=== PATIENT | female | born 1975 | race Caucasian/White ===

== ENCOUNTER 2017-01-28 15:09 | Emergency (ER) | payer BC ==
[2017-01-28] MEDS ORDERED: KETOROLAC TROMETHAMINE 60 MG/2 ML SDV IM ONE (17:19)
[2017-01-28] MEDS ORDERED: DIPHENHYDRAMINE HCL 50 MG/ML VIAL IM ONE (17:19)
[2017-01-28] MEDS ORDERED: METOCLOPRAMIDE HCL INJ/PF 10 MG/2 ML SDV IM ONE (17:19)
--- NOTE | 2017-01-28 17:20 | ER Document Report ---
ED Headache - General Mode of Arrival: Ambulatory Information source: Patient TRAVEL OUTSIDE OF THE [place] IN LAST 30 DAYS: No - HPI Patient complains to provider of: "Migraine" Onset: Other - see HPI note Exacerbated by: Light Similar symptoms previously: Yes Recently seen / treated by doctor: No - General Chief Complaint: Headache Stated Complaint: HEADACHE Notes: Patient is a 41-year-old female presented emergency department for migraine. Patient has a chronic history of migraines and sees Dr. Hughes, neurologist. Patient states that Dr. Hughes has given her all the treatments to treat her migraines with no relief. Patient is now receiving narcotic pain medication from this provider. However, the patient states that these medications do not help her migraines. Patient states that she's also had 2 treatments of Botox and is supposed to be receiving a third. Patient states this particular migraine started one month ago. Patient has photophobia with this migraine. Patient states that she is able to call a ride if we medicate her. (ZOIE BACA) - Related Data Allergies/Adverse Reactions: clarithromycin [From Biaxin] Allergy (Verified 01/28/17 15:33) eletriptan HBr [From Relpax] Allergy (Verified 01/28/17 15:33) topiramate [From Trokendi XR] Allergy (Verified 01/28/17 15:33) Past Medical History - General Information source: Patient - Social History Smoking Status: Never Smoker Cigarette use (# per day): No Chew tobacco use (# tins/day): No Frequency of alcohol use: None Drug Abuse: None Family History: None Patient has suicidal ideation: No Patient has homicidal ideation: No Neurological Medical History: Reports: Hx Migraine Musculoskeltal Medical History: Denies Hx Arthritis Past Surgical History: Reports: Hx Section, Hx Tonsillectomy - tubes in ears - Immunizations Hx Diphtheria, Pertussis, Tetanus Vaccination: No Review of Systems - Review of Systems Constitutional: No symptoms reported EENT: No symptoms reported Cardiovascular: No symptoms reported Respiratory: No symptoms reported Gastrointestinal: No symptoms reported Genitourinary: No symptoms reported Female Genitourinary: No symptoms reported Musculoskeletal: No symptoms reported Skin: No symptoms reported Hematologic/Lymphatic: No symptoms reported Neurological/Psychological: See HPI, Headaches -: Yes All other systems reviewed and negative Physical Exam - Vital signs Interpretation: Normal - General General appearance: Appears well, Alert In distress: Mild - HEENT Head: Normocephalic, Atraumatic Eyes: Normal Pupils: PERRL Mucous membranes: Moist - Respiratory Respiratory status: No respiratory distress - Cardiovascular Rhythm: Regular - Abdominal Inspection: Normal - Back Back: Normal, Nontender - Extremities General upper extremity: Normal inspection, Normal ROM, Normal strength General lower extremity: Normal inspection, Normal ROM, Normal strength - Neurological Neuro grossly intact: Yes Cognition: Normal Orientation: AAOx4 [place] Coma Scale Eye Opening: Spontaneous Vasyl Coma Scale Verbal: Oriented [place] Coma Scale Motor: Obeys Commands Vasyl Coma Scale Total: 15 Speech: Normal Sensory: Normal - Psychological Associated symptoms: Normal affect, Normal mood - Skin Skin Temperature: Warm Skin Moisture: Dry Course - Re-evaluation Re-evalutation: 01/28/17 18:15 Patient presented per with the gradual onset of headache photophobia started a month ago. She has chronic long-standing headaches for which she sees a neurologist and has been refractory to every medication except the potassium on pain medication causes noticed do according to her. Patient also received 2 doses of Botox without any relief says that this is exactly same character quality frequency duration is previous headaches. No blurred vision double vision slurred speech strokelike symptoms weakness dizziness vertigo syncope or near-syncope no numbness tingling weakness loss of bowel or bladder function. On examination she is well-appearing nontoxic no acute distress afebrile no nuchal rigidity or concerns for meningitis. Normal neurological exam GCS of 15 ambulatory without any difficulty. Given Toradol Reglan and Benadryl with significant improvement feels like shingles and sleep. At this time no emergent need for additional workup CT of the head or concerns for stroke or subarachnoid hemorrhage. We'll discharge her follow up with her neurologist and discussed reasons for ED return sooner (DELMI OSUNA) - Vital Signs Vital signs: Temp Pulse Resp BP Pulse Ox 97.2 F 104 H 18 122/69 85 L 01/28/17 18:18 01/28/17 18:18 01/28/17 18:18 01/28/17 18:18 01/28/17 18:18 Discharge - Discharge Clinical Impression: acute on chronic cephalgia Condition: Stable Disposition: HOME, SELF-CARE Additional Instructions: Headache The physician does not feel that the headache you are experiencing has a serious underlying cause. Most headaches are due to emotional stress, with resultant muscle tension (tension headache). Occasionally, headaches are secondary to changes in the blood vessels of the scalp (vascular headache and migraine headache). Sometimes, a headache is the first symptom of another developing illness, such as a viral infection. You have no evidence of stroke, bleeding, meningitis, or other serious cause of your headache. The treatment of headaches varies with the severity and cause of the pain. Not all headaches need pain shots. In fact, there is evidence that using narcotics for headaches may make them worse in the long run. The physician will determine the therapy that's in your best interest. If you develop a fever, if the headache is different from any you've previously experienced, or if the headache progressively worsens, then call your physician at once or go to the emergency room. Follow-up with your neurologist in 2-3 days return for increasing worsening or new symptoms Scribe Attestation: 01/28/17 18:14 I personally performed the services described in the documentation reviewed the documentation recorded by the scribe in my presence and it accurately incompletely records my words and actions (DELMI OSUNA) Scribe Documentation - Scribe Written by Dima:: Zoie Baca 01/28/17 18:30 acting as scribe for :: Valdemar
[2017-01-28 18:20] VITALS: BP 122/69
== END 2017-01-28 18:18 | disposition home or self-care (01) ==
LOC: ER 15:09
DX: G43.909 Migraine, unspecified, not intractable, without status migrainosus (principal); H53.149 Visual discomfort, unspecified; Z79.891 Long term (current) use of opiate analgesic; Z98.890 Other specified postprocedural states; Z88.1 Allergy status to other antibiotic agents; Z88.6 Allergy status to analgesic agent
CPT/HCPCS: 99283; 96372; J1200; J1885; J2765

== ENCOUNTER → 2017-02-23 | Outpatient (CLI) | payer BC ==
--- NOTE | 2017-02-23 14:42 | RADIOLOGY REPORT (SQ) ---
EXAM DESCRIPTION: CT ABD/PELVIS WITH IV ORAL COMPLETED DATE/TIME: 02/23/2017 1:56 pm REASON FOR STUDY: LUQ ABD PAIN (R10.12), EPIGASTRIC PAIN (R10.13), ABD TENDERNESS-EPIGASTRIC R10.12 LEFT UPPER QUADRANT PAIN R10.13 EPIGASTRIC PAIN R10.816 EPIGASTRIC ABDOMINAL TENDERNESS COMPARISON: 01/09/2016. TECHNIQUE: CT scan of the abdomen and pelvis performed with intravenous and oral contrast using alexys abigail scanning technique with dynamic intravenous contrast injection. Images reviewed with lung, soft t issue, and bone windows. Reconstructed coronal and sagittal MPR images reviewed. Delayed images for e valuation of the urinary system also acquired. All images stored on PACS. All CT scanners at this facility use dose modulation, iterative reconstruction, and/or weight based d osing when appropriate to reduce radiation dose to as low as reasonably achievable (ALARA). [facility]: Dose Right [facility]: CareDose [facility]: Dose Right [facility]: Teradose 4D [facility]: Hippflow CONTRAST TYPE AND DOSE: 75 mL Isovue 370- low osmolar. RENAL FUNCTION: None required. The patient is less than 50 years old. RADIATION DOSE: 9.41mGy. LIMITATIONS: None. FINDINGS: LOWER CHEST: No significant findings. No nodules or infiltrates. LIVER: Normal size. No masses or dilated ducts. SPLEEN: Normal size. No focal lesions. PANCREAS: No masses. No significant calcifications. No adjacent inflammation or peripancreatic fluid collections. Pancreatic duct not dilated. GALLBLADDER: No identified stones by CT criteria. No inflammatory changes to suggest cholecystitis. ADRENAL GLANDS: No significant masses or asymmetry. RIGHT KIDNEY AND URETER: No solid masses. No significant calcification. No hydronephrosis or hydroure ter. LEFT KIDNEY AND URETER: No solid masses. No significant calcification. No hydronephrosis or hydrouret er. AORTA AND VESSELS: No aneurysm. No dissection. Renal arteries, SMA, celiac without stenosis. RETROPERITONEUM: No retroperitoneal adenopathy, hemorrhage or masses. BOWEL AND PERITONEAL CAVITY: No obstruction. No visualized masses. No free fluid. No inflammatory ch anges or thickening of bowel wall. APPENDIX: Not visualized. PELVIS: No significant masses. Normal bladder. No free fluid. ABDOMINAL WALL: No masses. No hernias. BONES: No significant or acute findings. OTHER: No other significant finding. IMPRESSION: NO SIGNIFICANT OR ACUTE FINDINGS IN THE ABDOMEN OR PELVIS. TECHNICAL DOCUMENTATION: JOB ID: [id number] Quality ID # [id number]: Final reports with documentation of one or more dose reduction techniques (e.g., Au tomated exposure control, adjustment of the mA and/or kV according to patient size, use of iterative reconstruction technique) 2010 [employer]- All Rights Reserved
== END ==
LOC: RAD 12:41
PROVIDERS: ATTEND Internal Medicine Gastroenterology
DX: R10.12 Left upper quadrant pain (principal); R10.13 Epigastric pain
CPT/HCPCS: 74177

== ENCOUNTER 2017-02-28 08:09 | Emergency (ER) | payer BC ==
[2017-02-28 09:23] LABS: ABSOLUTE EOSINOPHILS # (AUTO) 0.1 10^3/uL (0.0-0.6); ABSOLUTE LYMPHOCYTES (AUTO) 1.9 10^3/uL (0.5-4.7); ABSOLUTE MONOCYTES (AUTO) 0.7 10^3/uL (0.1-1.4); ABSOLUTE NEUT (AUTO) 3.8 10^3/uL (1.7-8.2); BASOPHILS % (AUTO) 0.6 % (0-2); EOSINOPHILS % (AUTO) 1.5 % (0-6); HEMATOCRIT 32.8 % (36.0-47.0); HEMOGLOBIN 10.5 g/dL (12.0-15.5); HGB HCT DIFFERENCE -1.3; LYMPHOCYTES % (AUTO) 29.6 % (13-45); MEAN CORPUSCULAR HEMOGLOBIN 23.9 pg (27.0-33.4); MEAN CORPUSCULAR HGB CONC 31.9 g/dL (32.0-36.0); MEAN CORPUSCULAR VOLUME 75 fl (80-97); MONOCYTES % (AUTO) 10.1 % (3-13); RED BLOOD COUNT 4.39 10^6/uL (3.72-5.28); SEGMENTED NEUTROPHILS % (AUTO) 58.2 % (42-78); WHITE BLOOD COUNT 6.5 10^3/uL (4.0-10.5)
[2017-02-28 09:31] VITALS: BP 121/79
[2017-02-28 09:32] LABS: APPEARANCE,URINE CLEAR; BILIRUBIN,URINE NEGATIVE (NEGATIVE); GLUCOSE, URINE NEGATIVE (NEGATIVE); KETONES,URINE NEGATIVE (NEGATIVE); LEUKOCYTE ESTERASE,URINE NEGATIVE (NEGATIVE); NITRITE,URINE NEGATIVE (NEGATIVE); PROTEIN,URINE NEGATIVE (NEGATIVE); URINE SPECIFIC GRAVITY 1.003; UROBILINOGEN,URINE NEGATIVE mg/dL (<2.0)
[2017-02-28 09:34] LABS: ANION GAP 11 (5-19); BLOOD UREA NITROGEN 10 mg/dL (7-20); CALCIUM 9.7 mg/dL (8.4-10.2); CARBON DIOXIDE 27 mmol/L (22-30); CHLORIDE 103 mmol/L (98-107); CREATININE RESULT 0.69 mg/dL (0.52-1.25); GLUCOSE 89 mg/dL (75-110); LIPASE 97.1 U/L (23-300); SODIUM 140.5 mmol/L (137-145)
[2017-02-28] MEDS ORDERED: ONDANSETRON 4 MG TAB.RAPDIS PO ONE (09:57)
[2017-02-28] MEDS ORDERED: MECLIZINE HCL 25 MG TABLET PO ONE (09:57)
[2017-02-28] MEDS ORDERED: MAG HYDROX/AL HYDROX/SIMETH SUSP 30 ML UDCUP PO ONE (10:25)
[2017-02-28] MEDS ORDERED: LIDOCAINE 2% VISCOUS SOLN 20 ML UDCUP PO ONE (10:25)
--- NOTE | 2017-02-28 10:29 | ER Document Report ---
HPI - HPI Patient complains to provider of: nausea and dizziness Pain Level: 2 Context: Patient is a 41 year old female who presents to the ED complaining of dizziness for the past day and nausea with abdominal pain. She states that her dizziness is normal for her but doesnt normally last as long as one day. She states she gets a head cleaning when she stands up and walks around. She states that she notices this when she isnt drinking enough water. She says she has been following with GI this year since she has had a lack of appetite since she was treated for h pylori in october. she denies vomiting, lower abdominal/pelvic pain, fevers, chills, headaches. tolerating PO PMH: migraines, GERD - CARDIOVASCULAR Cardiovascular: DENIES: Chest pain - REPRODUCTIVE Reproductive: DENIES: : - DERM Skin Color: Normal Past Medical History - Social History Smoking Status: Unknown if Ever Smoked Family History: None - Past Medical History Cardiac Medical History: Denies: Hx Coronary Artery Disease, Hx Heart Attack, Hx Hypertension Pulmonary Medical History: Denies: Hx Asthma, Hx Bronchitis, Hx COPD, Hx Pneumonia Neurological Medical History: Reports: Hx Migraine. Denies: Hx Cerebrovascular Accident, Hx Seizures Renal/ Medical History: Denies: Hx Peritoneal Dialysis Musculoskeltal Medical History: Denies Hx Arthritis Past Surgical History: Reports: Hx Section, Hx Tonsillectomy - tubes in ears. Denies: Hx Hysterectomy - Immunizations Hx Diphtheria, Pertussis, Tetanus Vaccination: No Vertical Provider Document - CONSTITUTIONAL Notes: PHYSICAL EXAM GENERAL: Alert, interacts well. HEAD: Normocephalic, atraumatic. EYES: Pupils equal, round, and reactive to light. Extraocular movements intact. ENT: Oral mucosa moist, tongue midline. Negative Hallpike's maneuver bilaterally NECK: Full range of motion. Supple. Trachea midline. LUNGS: Clear to auscultation bilaterally, no wheezes, rales, or rhonchi. No respiratory distress. HEART: Regular rate and rhythm. No murmurs, gallops, or rubs. ABDOMEN: Soft, nondistended, nontender. No guarding, rebound, or rigidity.. Bowel sounds present in all 4 quadrants. EXTREMITIES: Moves all 4 extremities spontaneously. No edema, radial and dorsalis pedis pulses 2/4 bilaterally. No cyanosis. NEUROLOGICAL: Alert and oriented x4. Normal speech. PSYCH: Normal affect, normal mood. SKIN: Warm, dry, normal turgor. No rashes or lesions noted. - INFECTION CONTROL TRAVEL OUTSIDE OF THE [place] IN LAST 30 DAYS: No - RESPIRATORY O2 Sat by Pulse Oximetry: 100 Course - Re-evaluation Re-evalutation: 02/28/17 18:13 41-year-old female but anxious female, no acute distress and afebrile. Labs reveal chronic anemia consistent with iron deficiency anemia, leukocytosis, white count. Chemistry panel does not show any electrolyte abnormalities, abnormalities in liver or renal function. Lipase normal. Tolerated p.o. cocktail will discharge home with instruction to follow-up with gastroenterology - Vital Signs Vital signs: Temp Pulse Resp BP Pulse Ox 98.2 F 71 14 121/79 100 02/28/17 08:12 02/28/17 09:41 02/28/17 09:41 02/28/17 09:41 02/28/17 09:41 - Laboratory Result Diagrams: 02/28/17 09:15 02/28/17 09:15 Laboratory results interpreted by me: 02/28/17 09:15 Hgb 10.5 L Hct 32.8 L MCV 75 L MCH 23.9 L MCHC 31.9 L RDW 18.0 H Discharge - Discharge Clinical Impression: Nausea Condition: Good Disposition: HOME, SELF-CARE Additional Instructions: Esophagitis Your evaluation has resulted in a diagnosis of esophagitis. This is an inflammation of the lower esophagus due to stomach acid. It causes symptoms such as chest pain, heartburn, or food "sticking." This is common in persons with a hiatal hernia. Certain foods, alcohol, and aspirin contribute to esophagitis. Treatment depends on the severity. Usually, antacids or acid-suppressing medicines are used. The physician will often prescribe membrane-protective drugs (such as Carafate). Some patients benefit from medication that tightens the valve at the top of the stomach (such as Reglan). Avoid alcohol, aspirin, caffeine, tobacco, and foods that cause heartburn ( such as chocolate). Elevate the head of your bed about four inches. Call the doctor if you develop severe chest pain, inability to swallow fluids, fever, or worsening symptoms. Prescriptions: Omeprazole Magnesium [Prilosec Otc] 20 mg PO DAILY #14 tablet. Ondansetron HCl [Zofran 4 mg Tablet] 1 - 2 tab PO Q4H PRN #20 tablet PRN Reason: Sucralfate [Carafate 1 gm Tablet] 1 gm PO ACHS #120 tablet Forms: Return to Work Referrals: MAGDALENA WATKINS, [facility] [Primary Care Provider] - Follow up as needed TED ORTEZ MD [ACTIVE STAFF] - Follow up as needed
== END 2017-02-28 10:40 | disposition home or self-care (01) ==
LOC: ER 08:09
DX: R11.0 Nausea (principal); R42 Dizziness and giddiness; R10.9 Unspecified abdominal pain
CPT/HCPCS: 99284; 36415; 83690; 85025; 81025; 80048; 81001; S0119; J3490

== ENCOUNTER 2017-04-28 12:27 | Emergency (ER) | payer BC ==
[2017-04-28 12:36] VITALS: BP 116/76
--- NOTE | 2017-04-28 12:52 | ER Document Report ---
ED Headache - General Chief Complaint: Headache Stated Complaint: DIZZINESS Time Seen by Provider: 04/28/17 12:48 Notes: Patient states she has a long history of migraines. She has been on multiple different medications. 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 She states today's migraine feels like her usual migraine it is just a severe one. She states she is currently taking hydrocodone but does not like this medication. She states the headache is bilateral and throbbing. It is severe.. It does not radiate. It is made worse by movement or light. It is better with rest and sleep. TRAVEL OUTSIDE OF THE [place] IN LAST 30 DAYS: No - Related Data Allergies/Adverse Reactions: clarithromycin [From Biaxin] Allergy (Verified 04/28/17 12:33) eletriptan HBr [From Relpax] Allergy (Verified 04/28/17 12:33) topiramate [From Trokendi XR] Allergy (Verified 04/28/17 12:33) Past Medical History - General Information source: Patient - Social History Smoking Status: Never Smoker Drug Abuse: None Family History: None - Past Medical History Cardiac Medical History: Denies: Hx Coronary Artery Disease, Hx Heart Attack, Hx Hypertension Pulmonary Medical History: Denies: Hx Asthma, Hx Bronchitis, Hx COPD, Hx Pneumonia Neurological Medical History: Reports: Hx Migraine. Denies: Hx Cerebrovascular Accident, Hx Seizures Renal/ Medical History: Denies: Hx Peritoneal Dialysis Musculoskeltal Medical History: Denies Hx Arthritis Past Surgical History: Reports: Hx Section, Hx Tonsillectomy - tubes in ears. Denies: Hx Hysterectomy - Immunizations Hx Diphtheria, Pertussis, Tetanus Vaccination: No Review of Systems - Review of Systems Constitutional: denies: Chills, Fever EENT: Blurred vision Cardiovascular: denies: Chest pain, Palpitations Respiratory: denies: Cough, Short of breath Gastrointestinal: Nausea Physical Exam - Vital signs Vitals: Temp Pulse Resp BP Pulse Ox 98.3 F 87 14 116/76 100 04/28/17 12:35 04/28/17 12:35 04/28/17 12:35 04/28/17 12:35 04/28/17 12:35 Interpretation: Normal - General General appearance: Appears well, Alert - HEENT Head: Normocephalic, Atraumatic Eyes: Normal Pupils: PERRL - Respiratory Respiratory status: No respiratory distress Chest status: Nontender Breath sounds: Normal Chest palpation: Normal - Cardiovascular Rhythm: Regular Heart sounds: Normal auscultation Murmur: No - Abdominal Inspection: Normal Distension: No distension Bowel sounds: Normal Tenderness: Nontender Organomegaly: No organomegaly - Back Back: Normal, Nontender - Extremities General upper extremity: Normal inspection, Nontender, Normal color, Normal ROM , Normal temperature General lower extremity: Normal inspection, Nontender, Normal color, Normal ROM , Normal temperature, Normal weight bearing. No: Parvin's sign - Neurological Neuro grossly intact: Yes Cognition: Normal Orientation: AAOx4 [place] Coma Scale Eye Opening: Spontaneous Vasyl Coma Scale Verbal: Oriented Vasly Coma Scale Motor: Obeys Commands Vasyl Coma Scale Total: 15 Speech: Normal Motor strength normal: LUE, RUE, LLE, RLE Sensory: Normal - Psychological Associated symptoms: Normal affect, Normal mood - Skin Skin Temperature: Warm Skin Moisture: Dry Skin Color: Normal Course - Vital Signs Vital signs: Temp Pulse Resp BP Pulse Ox 98.3 F 87 14 116/76 100 04/28/17 12:35 04/28/17 12:35 04/28/17 12:35 04/28/17 12:35 04/28/17 12:35 Discharge - Discharge Clinical Impression: Migraine Condition: Stable Disposition: HOME, SELF-CARE Instructions: Headache ([facility]) Additional Instructions: Please follow-up with your primary doctor as necessary. Prescriptions: Butalb/Acetaminophen/Caffeine [Fioricet (50-325-40 mg) Tablet] 1 - 2 tab PO Q4H #20 tab Diphenhydramine HCl [Benadryl 25 mg Capsule] 1 cap PO Q4 PRN #1 pkg PRN Reason:
== END 2017-04-28 12:55 | disposition home or self-care (01) ==
LOC: ER 12:27
DX: G43.909 Migraine, unspecified, not intractable, without status migrainosus (principal); R42 Dizziness and giddiness; Z79.899 Other long term (current) drug therapy
CPT/HCPCS: 99283

== ENCOUNTER → 2017-07-11 | Outpatient (CLI) | payer BC ==
--- NOTE | 2017-07-11 10:33 | WOMENS IMAGING REPORT ---
EXAM DESCRIPTION: U/S ABDOMEN LIMITED COMPLETED DATE/TIME: 07/11/2017 9:07 am REASON FOR STUDY: EPIGASTRIC PAIN; R10.13 R10.13 EPIGASTRIC PAIN R11.0 NAUSEA R10.11 RIGHT UPPER QUADRANT PAIN COMPARISON: None. TECHNIQUE: Dynamic and static grayscale images acquired of the abdomen and recorded on PACS. Additio nal selected color Doppler and spectral images recorded. LIMITATIONS: None. FINDINGS: PANCREAS: No masses. Visualized pancreatic duct normal caliber. LIVER: No masses. Echotexture normal. LIVER VASCULATURE: Normal directional flow of the main portal vein and hepatic veins. GALLBLADDER: No stones. Normal wall thickness. No pericholecystic fluid. ULTRASOUND-DETECTED PANDA'S SIGN: Negative. INTRAHEPATIC DUCTS AND COMMON DUCT: CBD and intrahepatic ducts normal caliber. No filling defects. INFERIOR VENA CAVA: Normal flow. AORTA: No aneurysm. RIGHT KIDNEY: Normal size, 10.6 cm in length. Normal echogenicity. No solid or suspicious masses. No hydronephrosis. No calcifications. PERITONEAL AND RIGHT PLEURAL SPACE: No ascites or effusions. OTHER: No other significant findings. IMPRESSION: NORMAL RIGHT UPPER QUADRANT ULTRASOUND. TECHNICAL DOCUMENTATION: JOB ID: [id number] [employer]- All Rights Reserved
== END ==
LOC: WI 08:36
PROVIDERS: ATTEND Internal Medicine Gastroenterology
DX: R10.13 Epigastric pain (principal); R11.0 Nausea; R10.11 Right upper quadrant pain
CPT/HCPCS: 76705

== ENCOUNTER → 2018-07-03 | Outpatient (CLI) | payer BC ==
--- NOTE | 2018-07-04 09:53 | RADIOLOGY REPORT (SQ) ---
EXAM DESCRIPTION: MRI HEAD COMBO COMPLETED DATE/TIME: 07/03/2018 6:40 pm REASON FOR STUDY: MIGRAINE WITHOUT AURA, INTRACTABLE, WITH STATUS MIGRAINOSUS G43.011 MIGRAINE WITH OUT AURA, INTRACTABLE, WITH STATUS MIGR COMPARISON: CT brain 09/27/2015 MRI brain 03/26/2016 TECHNIQUE: Multiplanar imaging includes noncontrasted T1, T2, FLAIR, diffusion with ADC map and post gadolinium contrast T1 sequences. Images stored on PACS. CONTRAST TYPE AND DOSE: 10 mL Prohance. RENAL FUNCTION: GFR > 60. LIMITATIONS: None. FINDINGS: ANATOMY: Low-lying cerebellar tonsils with for protrude about 12 mm below the foramen magn um into the upper cervical canal. Partial effacement of the CSF around the medulla and cerebellar to nsils without upper cervical cord syrinx down to the C3 level. CSF SPACES: Normal in size and contour. No hemorrhage. CEREBRUM: Sulci and gyri normal in size and contour. Normal white matter signal on FLAIR imaging. No evidence of hemorrhage, mass, or extraaxial fluid collection. No abnormal enhancement post contrast. POSTERIOR FOSSA: No signal alteration. No hemorrhage. No edema, masses, or mass effect. Internal marcie tory canals, cerebellopontine angles, mastoids normal. No enhancing lesions. No abnormal enhancement post contrast. DIFFUSION IMAGING: Negative for acute or subacute infarction. ORBITS: No masses. Globes normal. PARANASAL SINUSES: Bilateral maxillary sinus mucus or serous retention cysts. OTHER: No other significant finding. 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 No hydrocephalus. Otherwise unremarkable MRI brain without and with contrast EVIDENCE OF ACUTE STROKE: NO. TECHNICAL DOCUMENTATION: JOB ID: [id number]- All Rights Reserved Reading location - IP/workstation name: [email or web address]
== END ==
LOC: RAD 16:25
PROVIDERS: ATTEND Psychiatry & Neurology Neurology
DX: G43.011 Migraine without aura, intractable, with status migrainosus (principal); G93.5 Compression of brain
CPT/HCPCS: 70553

== ENCOUNTER 2019-07-04 10:27 | Emergency (ER) | payer BC ==
--- NOTE | 2019-07-04 10:45 | ER Document Report ---
ED Medical Screen (RME) - General Chief Complaint: Headache Stated Complaint: MIGRAINE Time Seen by Provider: 07/04/19 10:44 Primary Care Provider: RAH CUNNINGHAM MD [Primary Care Provider] - Follow up as needed Mode of Arrival: Ambulatory Information source: Patient Notes: 43-year-old female presented to ED for complaint of chronic migraines x30 years sciatic nerve pain he has a history of Chiari I malformation's cervicogenic neck pain chronic right back pain and chronic migraines. She is alert oriented respirations regular and unlabored speaking in full sentences walks with a even steady gait. I have greeted and performed a rapid initial assessment of this patient. A comprehensive ED assessment and evaluation of the patient, analysis of test results and completion of medical decision making process will be conducted by an additional ED providers. TRAVEL OUTSIDE OF THE [place] IN LAST 30 DAYS: No - Related Data Allergies/Adverse Reactions: clarithromycin [From Biaxin] Allergy (Verified 07/04/19 10:35) eletriptan HBr [From Relpax] Allergy (Verified 07/04/19 10:35) topiramate [From Trokendi XR] Allergy (Verified 07/04/19 10:35) Past Medical History - Social History Chew tobacco use (# tins/day): No Drug Abuse: None - Past Medical History Cardiac Medical History: Denies: Hx Coronary Artery Disease, Hx Heart Attack, Hx Hypertension Pulmonary Medical History: Denies: Hx Asthma, Hx Bronchitis, Hx COPD, Hx Pneumonia Neurological Medical History: Reports: Hx Migraine. Denies: Hx Cerebrovascular Accident, Hx Seizures Renal/ Medical History: Denies: Hx Peritoneal Dialysis Musculoskeltal Medical History: Denies Hx Arthritis Past Surgical History: Reports: Hx Section, Hx Tonsillectomy - tubes in ears. Denies: Hx Hysterectomy - Immunizations Hx Diphtheria, Pertussis, Tetanus Vaccination: No Physical Exam - Vital signs Vitals: Temp Pulse Resp BP Pulse Ox 98.0 F 76 18 110/67 96 07/04/19 10:33 07/04/19 10:33 07/04/19 10:33 07/04/19 10:33 07/04/19 10:33 Course - Vital Signs Vital signs: Temp Pulse Resp BP Pulse Ox 98.0 F 76 18 110/67 96 07/04/19 10:33 07/04/19 10:33 07/04/19 10:33 07/04/19 10:33 07/04/19 10:33 Doctor's Discharge - Discharge Referrals: RAH CUNNINGHAM MD [Primary Care Provider] - Follow up as needed
[2019-07-04 11:10] LABS: ABSOLUTE BASOPHILS # (AUTO) 0.1 10^3/uL (0.0-0.2); ABSOLUTE EOSINOPHILS # (AUTO) 0.1 10^3/uL (0.0-0.6); ABSOLUTE LYMPHOCYTES (AUTO) 2.3 10^3/uL (0.5-4.7); ABSOLUTE MONOCYTES (AUTO) 0.6 10^3/uL (0.1-1.4); ABSOLUTE NEUT (AUTO) 3.4 10^3/uL (1.7-8.2); BASOPHILS % (AUTO) 0.8 % (0-2); EOSINOPHILS % (AUTO) 1.7 % (0-6); HEMATOCRIT 48.7 % (36.0-47.0); HEMOGLOBIN 16.3 g/dL (12.0-15.5); LYMPHOCYTES % (AUTO) 35.4 % (13-45); MEAN CORPUSCULAR HEMOGLOBIN 29.8 pg (27.0-33.4); MEAN CORPUSCULAR HGB CONC 33.6 g/dL (32.0-36.0); MEAN CORPUSCULAR VOLUME 89 fl (80-97); MONOCYTES % (AUTO) 9.8 % (3-13); PLATELET COUNT 298 10^3/uL (150-450); RED BLOOD COUNT 5.48 10^6/uL (3.72-5.28); RED CELL DISTRIBUTION WIDTH 12.9 % (11.5-14.0); SEGMENTED NEUTROPHILS % (AUTO) 52.3 % (42-78); TOTAL CELLS COUNTED % (AUTO) 100 %; WHITE BLOOD COUNT 6.5 10^3/uL (4.0-10.5)
--- NOTE | 2019-07-04 11:21 | RADIOLOGY REPORT (SQ) ---
EXAM DESCRIPTION: L SPINE WHOLE COMPLETED DATE/TIME: 07/04/2019 11:10 am REASON FOR STUDY: right low back pain COMPARISON: None. NUMBER OF VIEWS: Three views. TECHNIQUE: AP, lateral and sacral radiographic images acquired of the lumbar spine. LIMITATIONS: None. FINDINGS: MINERALIZATION: Normal. SEGMENTATION: Normal. No transitional anatomy. ALIGNMENT: Normal. VERTEBRAE: Maintained height. No fracture or worrisome bone lesion. DISCS: Preserved height. No significant osteophytes or end plate irregularity. POSTERIOR ELEMENTS: Pedicles and facets are intact. No pars defect or posterior arch defects. HARDWARE: None in the spine. PARASPINAL SOFT TISSUES: Normal. PELVIS: Intact as visualized. No fractures or worrisome bone lesions. SI joints intact. OTHER: No other significant finding. IMPRESSION: NORMAL 3 VIEW LUMBAR SPINE. TECHNICAL DOCUMENTATION: JOB ID: [id number]- All Rights Reserved Reading location - IP/workstation name: [email or web address]
[2019-07-04 11:24] LABS: APPEARANCE,URINE SLIGHTLY-CLOUDY; BILIRUBIN,URINE NEGATIVE (NEGATIVE); COLOR,URINE YELLOW; GLUCOSE, URINE NEGATIVE (NEGATIVE); KETONES,URINE NEGATIVE (NEGATIVE); LEUKOCYTE ESTERASE,URINE NEGATIVE (NEGATIVE); NITRITE,URINE NEGATIVE (NEGATIVE); PROTEIN,URINE NEGATIVE (NEGATIVE); URINE SPECIFIC GRAVITY 1.014; UROBILINOGEN,URINE NEGATIVE mg/dL (<2.0)
[2019-07-04 11:34] LABS: ALBUMIN 4.2 g/dL (3.5-5.0); ALKALINE PHOSPHATASE 27 U/L (38-126); ANION GAP 9 (5-19); ASPARTATE AMINO TRANSFERASE 25 U/L (14-36); BILIRUBIN,DIRECT 0.2 mg/dL (0.0-0.4); BILIRUBIN,TOTAL 0.4 mg/dL (0.2-1.3); BLOOD UREA NITROGEN 11 mg/dL (7-20); CALCIUM 9.4 mg/dL (8.4-10.2); CARBON DIOXIDE 26 mmol/L (22-30); CHLORIDE 105 mmol/L (98-107); GLUCOSE 83 mg/dL (75-110); POTASSIUM 4.4 mmol/L (3.6-5.0); TOTAL PROTEIN 7.1 g/dL (6.3-8.2)
[2019-07-04] MEDS ORDERED: NORMAL SALINE 1000 ML 1,000 ML IV ONE (11:39)
[2019-07-04] MEDS ORDERED: ONDANSETRON HCL INJ/PF 4 MG/2 ML SDV IV ONE (11:40)
[2019-07-04] MEDS ORDERED: DEXAMETHASONE SOD PHOS INJ 10 MG/1 ML VIAL IV ONE (11:40)
[2019-07-04] MEDS ORDERED: DIPHENHYDRAMINE HCL 50 MG/ML VIAL IV ONE (11:40)
[2019-07-04] MEDS ORDERED: KETOROLAC TROMETHAMINE INJ/PF 30 MG/1 ML SDV IV ONE (11:40)
--- NOTE | 2019-07-04 11:47 | ER Document Report ---
ED Headache - General Chief Complaint: Headache Stated Complaint: MIGRAINE Time Seen by Provider: 07/04/19 10:44 Primary Care Provider: RAH CUNNINGHAM MD [NO LOCAL MD] - Follow up as needed Mode of Arrival: Ambulatory TRAVEL OUTSIDE OF THE [place] IN LAST 30 DAYS: No - HPI Notes: This is a 43-year-old female with a history of migraines who presents with a complaint of a migraine headache. Patient describes gradual onset headache which is typically chronic but increased last night. Headache is worse with light and noise exposure. As to the symptoms include some nausea. Patient also complains of a one-week history of lower back pain. Patient states that she thinks he pulled a muscle in her lower back while she was lifting things up. She denies any bowel or bladder incontinence. She denies any paresthesias. She describes her symptoms as moderate. She denies any fever or chills. - Related Data Allergies/Adverse Reactions: clarithromycin [From Biaxin] Allergy (Verified 07/04/19 10:35) eletriptan HBr [From Relpax] Allergy (Verified 07/04/19 10:35) topiramate [From Trokendi XR] Allergy (Verified 07/04/19 10:35) Past Medical History - General Information source: Patient - Social History Smoking Status: Never Smoker Chew tobacco use (# tins/day): No Drug Abuse: None Family History: None Patient has suicidal ideation: No Patient has homicidal ideation: No - Past Medical History Cardiac Medical History: Denies: Hx Coronary Artery Disease, Hx Heart Attack, Hx Hypertension Pulmonary Medical History: Denies: Hx Asthma, Hx Bronchitis, Hx COPD, Hx Pneumonia Neurological Medical History: Reports: Hx Migraine. Denies: Hx Cerebrovascular Accident, Hx Seizures Renal/ Medical History: Denies: Hx Peritoneal Dialysis Musculoskeletal Medical History: Reports Hx Arthritis Past Surgical History: Reports: Hx Section, Hx Nose Surgery - spetum repair, Hx Oral Surgery - [place] teeth, Hx Tonsillectomy - Adinoids. Denies: Hx Hysterectomy - Immunizations Hx Diphtheria, Pertussis, Tetanus Vaccination: No Review of Systems - Review of Systems Constitutional: denies: Fever Cardiovascular: denies: Chest pain, Palpitations Musculoskeletal: Back pain Neurological/Psychological: Headaches -: Yes All other systems reviewed and negative Physical Exam - Vital signs Vitals: Temp Pulse Resp BP Pulse Ox 98.0 F 76 18 110/67 96 07/04/19 10:33 07/04/19 10:33 07/04/19 10:33 07/04/19 10:33 07/04/19 10:33 - General General appearance: Appears well, Alert - Respiratory Respiratory status: No respiratory distress Chest status: Nontender Breath sounds: Normal Chest palpation: Normal - Cardiovascular Rhythm: Regular Heart sounds: Normal auscultation Murmur: No - Abdominal Inspection: Normal Distension: No distension Bowel sounds: Normal Tenderness: Nontender Organomegaly: No organomegaly - Neurological Neuro grossly intact: Yes Cognition: Normal Orientation: AAOx4 - There is no motor, sensory or cerebellar deficits. Nonfocal neurologic exam. GCS is 15. Vasyl Coma Scale Eye Opening: Spontaneous Porter Coma Scale Verbal: Oriented Porter Coma Scale Motor: Obeys Commands Vasyl Coma Scale Total: 15 Speech: Normal Motor strength normal: LUE, RUE, LLE, RLE Sensory: Normal - Psychological Associated symptoms: Normal affect, Normal mood - Skin Skin Temperature: Warm Skin Moisture: Dry Skin Color: Normal Course - Re-evaluation Re-evalutation: 07/04/19 11:47 Clinical picture is consistent with a migraine headache. There is no clinical suspicion for subarachnoid hemorrhage or meningitis. No indication for work-up. 2. Suspect lumbar strain. X-rays done in triage is negative. 07/04/19 13:39 Patient reevaluated. She still has a headache. Patient states that many medications do not work for her. However, she would like to try tramadol. She gives a history of complicated history where she spent 2 weeks at a special hospital in [place] for migraines and had difficulty controlling her headaches. 07/04/19 15:26 Patient reevaluated. Still has a headache. Back pain feels better. She does not want any further management for headache. She states she will go home and rest. Would like something for her back pain. We will put her on naproxen and Robaxin. She is stable for discharge. - Vital Signs Vital signs: Temp Pulse Resp BP Pulse Ox 98.0 F 76 18 110/67 96 07/04/19 10:33 07/04/19 10:33 07/04/19 10:33 07/04/19 10:33 07/04/19 10:33 - Laboratory Result Diagrams: 07/04/19 10:55 07/04/19 10:55 Laboratory results interpreted by me: 07/04/19 07/04/19 07/04/19 10:55 10:55 10:55 RBC 5.48 H Hgb 16.3 H Hct 48.7 H Alkaline Phosphatase 27 L Urine Blood LARGE H Discharge - Discharge Clinical Impression: Migraine Qualifiers: Migraine type: unspecified Status migrainosus presence: without status migrainosus Intractability: not intractable Qualified Code(s): G43.909 - Migraine, unspecified, not intractable, without status migrainosus Lumbar strain Qualifiers: Encounter type: initial encounter Qualified Code(s): S39.012A - Strain of muscle, fascia and tendon of lower back, initial encounter Condition: Stable Disposition: HOME, SELF-CARE Instructions: Headache ([facility]), Muscle Strain ([facility]), Low Back Pain ([facility]), Migraine Headache ([facility]) Prescriptions: Naproxen 500 mg PO BID PRN #14 tablet PRN Reason: Methocarbamol [Robaxin 500 mg Tablet] 500 mg PO BID PRN 10 Days #20 tablet PRN Reason: muscle spasm Referrals: RAH CUNNINGHAM MD [NO LOCAL MD] - Follow up as needed
[2019-07-04] MEDS ORDERED: TRAMADOL HCL 50 MG TABLET PO ONE (13:40)
[2019-07-04 15:57] VITALS: BP 120/62
== END 2019-07-04 15:58 | disposition home or self-care (01) ==
LOC: ER 10:27
DX: G43.909 Migraine, unspecified, not intractable, without status migrainosus (principal); S39.012A Strain of muscle, fascia and tendon of lower back, initial encounter; X58.XXXA Exposure to other specified factors, initial encounter; R11.0 Nausea; Z88.1 Allergy status to other antibiotic agents; Z88.6 Allergy status to analgesic agent
CPT/HCPCS: 99283; 96361; 96374; 96375; 36415; 84703; 85025; 80053; 81001; 72110; J1200; J1885; J2405; J7030; J1100

== ENCOUNTER 2019-08-18 07:49 | Emergency (ER) | payer BC ==
[2019-08-18] MEDS ORDERED: NORMAL SALINE 1000 ML 1,000 ML IV ONE (09:23)
[2019-08-18] MEDS ORDERED: DIPHENHYDRAMINE HCL 50 MG/ML VIAL IV ONE (09:29)
[2019-08-18] MEDS ORDERED: KETOROLAC TROMETHAMINE INJ/PF 30 MG/1 ML SDV IV ONE (09:32)
[2019-08-18] MEDS ORDERED: METOCLOPRAMIDE HCL INJ/PF 10 MG/2 ML SDV IV ONE (09:32)
[2019-08-18] MEDS ORDERED: HYDROMORPHONE HCL INJ/PF 2 MG/ML AMPULE IV ONE (11:30)
[2019-08-18 12:54] LABS: ABSOLUTE EOSINOPHILS # (AUTO) 0.1 10^3/uL (0.0-0.6); ABSOLUTE LYMPHOCYTES (AUTO) 1.9 10^3/uL (0.5-4.7); ABSOLUTE MONOCYTES (AUTO) 1.2 10^3/uL (0.1-1.4); ABSOLUTE NEUT (AUTO) 8.4 10^3/uL (1.7-8.2); BASOPHILS % (AUTO) 0.4 % (0-2); EOSINOPHILS % (AUTO) 1.3 % (0-6); HEMATOCRIT 45.7 % (36.0-47.0); HEMOGLOBIN 15.5 g/dL (12.0-15.5); MEAN CORPUSCULAR HEMOGLOBIN 29.8 pg (27.0-33.4); MEAN CORPUSCULAR HGB CONC 33.8 g/dL (32.0-36.0); MEAN CORPUSCULAR VOLUME 88 fl (80-97); MONOCYTES % (AUTO) 10.4 % (3-13); PLATELET COUNT 257 10^3/uL (150-450); RED BLOOD COUNT 5.19 10^6/uL (3.72-5.28); SEGMENTED NEUTROPHILS % (AUTO) 71.9 % (42-78); TOTAL CELLS COUNTED % (AUTO) 100 %; WHITE BLOOD COUNT 11.6 10^3/uL (4.0-10.5)
[2019-08-18 12:55] LABS: ALKALINE PHOSPHATASE 27 U/L (38-126); ANION GAP 9 (5-19); ASPARTATE AMINO TRANSFERASE 18 U/L (14-36); BILIRUBIN,DIRECT 0.1 mg/dL (0.0-0.4); BILIRUBIN,TOTAL 0.4 mg/dL (0.2-1.3); BLOOD UREA NITROGEN 8 mg/dL (7-20); CALCIUM 9.2 mg/dL (8.4-10.2); CARBON DIOXIDE 24 mmol/L (22-30); CHLORIDE 106 mmol/L (98-107); GLUCOSE 85 mg/dL (75-110); TOTAL PROTEIN 7.2 g/dL (6.3-8.2)
[2019-08-18 13:00] LABS: APPEARANCE,URINE CLEAR; BILIRUBIN,URINE NEGATIVE (NEGATIVE); COLOR,URINE YELLOW; GLUCOSE, URINE NEGATIVE (NEGATIVE); KETONES,URINE NEGATIVE (NEGATIVE); LEUKOCYTE ESTERASE,URINE SMALL (NEGATIVE); NITRITE,URINE NEGATIVE (NEGATIVE); PROTEIN,URINE NEGATIVE (NEGATIVE); URINE SPECIFIC GRAVITY 1.008; UROBILINOGEN,URINE NEGATIVE mg/dL (<2.0)
--- NOTE | 2019-08-18 13:03 | ER Document Report ---
Entered by RENETTA BAIRES SCRIBE 08/18/19 0929 Acting as scribe for:MAYA FRANCE IV, MD ED Headache - General Chief Complaint: Headache Stated Complaint: HEADACHE,NAUSEA Time Seen by Provider: 08/18/19 09:18 Primary Care Provider: SANG DILL PA-C [Primary Care Provider] - Follow up as needed Mode of Arrival: Ambulatory Information source: Patient Notes: 43-year-old female with daily "migraine headaches" that presents to the emerge ncy department today for complaints of a headache. Patient states the headache began this morning. Patient states she has a history of Chiari malformation and she plans to have some sort of surgical procedure in the next month for this. Patient states with this headache today she has had some nausea and photophobia. Pertinent PMHx/PSHx: Daily headaches (butorphanol nasal spray). Chiari malfor mation type I. PCP: Ryan TRAVEL OUTSIDE OF THE [place] IN LAST 30 DAYS: No - Related Data Allergies/Adverse Reactions: clarithromycin [From Biaxin] Allergy (Verified 08/18/19 07:56) eletriptan HBr [From Relpax] Allergy (Verified 08/18/19 07:56) topiramate [From Trokendi XR] Allergy (Verified 08/18/19 07:56) Past Medical History - General Information source: Patient - Social History Smoking Status: Never Smoker Cigarette use (# per day): No Chew tobacco use (# tins/day): No Frequency of alcohol use: None Drug Abuse: None Lives with: Family Family History: None Patient has suicidal ideation: No Patient has homicidal ideation: No Neurological Medical History: Reports: Hx Migraine Musculoskeletal Medical History: Reports Hx Arthritis Past Surgical History: Reports: Hx Section, Hx Nose Surgery - spetum repair, Hx Oral Surgery - [place] teeth, Hx Tonsillectomy - Adinoids - Immunizations Hx Diphtheria, Pertussis, Tetanus Vaccination: No Review of Systems - Review of Systems Constitutional: No symptoms reported EENT: No symptoms reported Cardiovascular: No symptoms reported Respiratory: No symptoms reported Gastrointestinal: See HPI, Nausea Genitourinary: No symptoms reported Female Genitourinary: No symptoms reported Musculoskeletal: No symptoms reported Skin: No symptoms reported Hematologic/Lymphatic: No symptoms reported Neurological/Psychological: See HPI, Headaches -: Yes All other systems reviewed and negative Physical Exam - Vital signs Vitals: Temp Pulse Resp BP Pulse Ox 97.7 F 88 18 121/57 L 99 08/18/19 07:52 08/18/19 07:52 08/18/19 07:52 08/18/19 07:52 08/18/19 07:52 - Notes Notes: Physical Exam: General: Alert, appears well. HEENT: Normocephalic. Atraumatic. PERRL. Extraocular movements intact. Oropharynx clear. Neck: Supple. Non-tender. Respiratory: No respiratory distress. Clear and equal breath sounds bilaterally. Cardiovascular: Regular rate and rhythm. Abdominal: Normal Inspection. Non-tender. No distension. Normal Bowel Sounds. Back: No gross abnormalities. Extremities: Moves all four extremities. Upper extremities: Normal inspection. Normal ROM. Lower extremities: Normal inspection. No edema. Normal ROM. Neurological: Normal cognition. AAOx4. Normal speech. Psychological: Normal affect. Normal Mood. Skin: Warm. Dry. Normal color. Course - Vital Signs Vital signs: Temp Pulse Resp BP Pulse Ox 97.7 F 88 18 121/57 L 99 08/18/19 07:52 08/18/19 07:52 08/18/19 07:52 08/18/19 07:52 08/18/19 07:52 - Laboratory Result Diagrams: 08/18/19 09:25 08/18/19 09:25 Laboratory results interpreted by me: 08/18/19 08/18/19 08/18/19 09:25 09:25 09:25 WBC 11.6 H Absolute Neuts (auto) 8.4 H Alkaline Phosphatase 27 L Urine Blood MODERATE H Ur Leukocyte Esterase SMALL H Discharge - Discharge Clinical Impression: Migraine headache, Acute cystitis Condition: Good Disposition: HOME, SELF-CARE Additional Instructions: HOME CARE INSTRUCTIONS & INFORMATION: Thank you for choosing us for your medical needs. We hope you're satisfied with the care you received. After you leave, you must properly care for your problem and, at the same time, observe its progress. Any condition can change. Some illnesses can change rapidly over hours or days. If your condition worsens, return to the Emergency Department or see your physician promptly. ABOUT YOUR X-RAYS AND EKG'S: If you had an EKG or X-rays taken, they have been read by the Emergency Physician. The X-rays and EKG's will also be read by a Radiologist or Assistant Buyer within 24 hours. If discrepancies are noted, you will be notified by telephone. Please be certain the ED has a correct telephone number & address where you can be reached. Also, realize that some fractures or abnormalities do not show up on initial X-rays. If your symptoms continue, see your physician. ABOUT YOUR LABORATORY TEST: If you had laboratory tests, the results have been reviewed by the Emergency Physician. Some test results (for example cultures) may not be available for several days. You will be contacted if any test result shows you need additional treatment. Please be certain the ED has a correct telephone number and address where you can be reached. ABOUT YOUR MEDICATIONS: You will receive instructions on how to take your medicine on the prescription label you receive. Additional information may be provided by the Pharmacy. If you have questions afterwards, call the ED for clarification or further instructions. Some prescribed medications may cause drowsiness. Do not perform tasks such as driving a car or operating machinery without consulting your Pharmacist. If you feel you need a refill of pain medication, your condition will need re-evaluation. Please do not call for a refill of any medication. ABOUT YOUR SIGNATURE: Signature of this document acknowledges to followin. Understanding that you received emergency treatment and that you may be released before al medical problems are known or treated. Please be certain the ED has a correct phone number & address where you can be reached. 2. Acknowledgement that you will arrange for follow-up care as recommended. 3. Authorization for the Emergency Physician to provide information to your follow-up Physician in order to maximize your care. AT ANY TIME, IF YOUR SYMPTOMS CHANGE SIGNIFICANTLY OR WORSEN OR YOU DEVELOP NEW SYMPTOMS, RETURN TO THE EMERGENCY DEPARTMENT IMMEDIATELY FOR RE-EVALUATION. OUR GOAL IS TO PROVIDE EXCELLENT MEDICAL CARE! WE HOPE THAT WE HAVE MET YOUR EXPECTATIONS DURING YOUR EMERGENCY DEPARTMENT VISIT AND THAT YOU FEEL YOU HAVE RECEIVED EXCELLENT CARE! Return to the Emergency Department without delay if any worse.Urinary Tract Infection Your evaluation indicates that you have a urinary tract infection. This is due to germs growing in the bladder. This is a common problem. This infection usually responds quickly to antibiotics. Your antibiotic should be taken exactly as prescribed. Drink plenty of fluids -- three to four quarts a day. Occasionally, a bladder anesthetic will be prescribed to help stop the feeling of urgency until the antibiotic has a chance to clear the infection. This may cause your urine to be dark orange. Certain urine infections require a culture. If the doctor obtained a culture, the results will be back in two days. You should call to see if a change in treatment is needed. A repeat urinalysis after you finish treatment is often recommended. The physician will let you know if further testing is required. Call the doctor if you develop fever, chills, flank pain, inability to urinate, or blood in the urine. Migraine Headache The physician feels that your symptoms are due to a migraine attack. Migraines are caused by changes in the blood vessels of the head. Arteries go into spasm, often causing warning symptoms that a headache may begin soon. As the spasm goes away, the vessels dilate and throb, causing the pounding pain of a migraine headache. Migraines often cause nausea and vomiting. The treatment of headaches varies with severity and cause of pain. Not all headaches need pain shots -- in fact, there is evidence that using narcotics for headaches may make them worse in the long run. The physician will determine the therapy that's in your best interest for this particular headache. Medications are available that may prevent migraines, or stop them as they first occur. If one medication is not helpful, try another. If migraines are frequent, be patient -- follow the doctor's recommendations. Call the physician if you are worsening, or if new symptoms arise. Prescriptions: Nitrofurantoin/Nitrofuran Mac [Macrobid 100 mg Capsule] 1 tab PO BID #20 capsule Referrals: SANG DILL PA-C [Primary Care Provider] - Follow up as needed I personally performed the services described in the documentation, reviewed and edited the documentation which was dictated to the scribe in my presence, and it accurately records my words and actions.
[2019-08-18 14:28] VITALS: BP 113/65
== END 2019-08-18 14:29 | disposition home or self-care (01) ==
LOC: ER 07:49
DX: G43.909 Migraine, unspecified, not intractable, without status migrainosus (principal); N30.00 Acute cystitis without hematuria; R11.0 Nausea; G93.5 Compression of brain; H53.149 Visual discomfort, unspecified
CPT/HCPCS: 99284; 96361; 96374; 96375; 36415; 85025; 81025; 80053; 81001; J1200; J1885; J2765; J1170; J7030

== ENCOUNTER 2019-09-08 07:35 | Emergency (ER) | payer BC ==
[2019-09-08] MEDS ORDERED: KETOROLAC TROMETHAMINE INJ/PF 30 MG/1 ML SDV IV ONE (09:38)
[2019-09-08] MEDS ORDERED: DIPHENHYDRAMINE HCL 50 MG/ML VIAL IV ONE (09:38)
[2019-09-08] MEDS ORDERED: METOCLOPRAMIDE HCL INJ/PF 10 MG/2 ML SDV IV ONE (09:38)
[2019-09-08] MEDS ORDERED: NORMAL SALINE 1000 ML 1,000 ML IV ONE (09:38)
[2019-09-08] MEDS ORDERED: BENZONATATE 100 MG CAPSULE PO ONE (09:39)
--- NOTE | 2019-09-08 09:41 | ER Document Report ---
ED Medical Screen (RME) - General Chief Complaint: Headache Stated Complaint: HEADACHE Time Seen by Provider: 09/08/19 09:32 Primary Care Provider: SANG DILL PA-C [Primary Care Provider] - Follow up as needed Notes: Patient is a 43-year-old female with a history of Chiari malformation, chronic migraines who presents emergency department with a chief complaint of headache and productive cough. Patient reports she has had a constant migraine since Tuesday. Patient reports she does take Stadol, gabapentin, Keppra and DHE which has not provided her any relief. She reports she does have a neurologist located in [facility]. Patient reports dizziness with nausea and 3- 4 episodes of vomiting yesterday. Patient reports light sensitivity and pain behind her right eye. Patient also reports a productive cough with white sputum that started yesterday. Patient reports that the cough is constant and seems to make the headache worse. Patient denies fever. TRAVEL OUTSIDE OF THE [place] IN LAST 30 DAYS: No - Related Data Allergies/Adverse Reactions: clarithromycin [From Biaxin] Allergy (Verified 09/08/19 07:40) eletriptan HBr [From Relpax] Allergy (Verified 09/08/19 07:40) topiramate [From Trokendi XR] Allergy (Verified 09/08/19 07:40) Home Medications: gabapentin. butorphanol. dihydroergot. levetiracetam. ashlyna Past Medical History - Social History Chew tobacco use (# tins/day): No Frequency of alcohol use: None Drug Abuse: None - Past Medical History Cardiac Medical History: Denies: Hx Coronary Artery Disease, Hx Heart Attack, Hx Hypertension Pulmonary Medical History: Denies: Hx Asthma, Hx Bronchitis, Hx COPD, Hx Pneumonia Neurological Medical History: Reports: Hx Migraine. Denies: Hx Cerebrovascular Accident, Hx Seizures Renal/ Medical History: Denies: Hx Peritoneal Dialysis Musculoskeltal Medical History: Reports Hx Arthritis Past Surgical History: Reports: Hx Section, Hx Nose Surgery - spetum repair, Hx Oral Surgery - [place] teeth, Hx Tonsillectomy - Adenoids. Denies: Hx Hysterectomy - Immunizations Hx Diphtheria, Pertussis, Tetanus Vaccination: No Physical Exam - Vital signs Vitals: Temp Pulse Resp BP Pulse Ox 97.3 F 71 16 135/85 H 98 09/08/19 07:40 09/08/19 07:40 09/08/19 07:40 09/08/19 07:40 09/08/19 07:40 - Respiratory Respiratory status: No respiratory distress Chest status: Nontender Breath sounds: Normal Notes: Patient has a persistent constant cough. Course - Re-evaluation Re-evalutation: 09/08/19 09:41 Did inform the patient that we will initiate IV fluids and our migraine cocktail that includes Toradol, Benadryl and Reglan. Patient reports that sometimes this combination of medication does help her. We will also obtain a chest x-ray and give Tessalon Perles for cough. Patient is agreement with this plan and denies questions at this time. Patient to be reevaluated by provider on the main side. I have greeted and performed a rapid initial assessment of this patient. A comprehensive ED assessment and evaluation of the patient, analysis of test results and completion of the medical decision making process will be conducted by additional ED providers. - Vital Signs Vital signs: Temp Pulse Resp BP Pulse Ox 97.3 F 71 16 135/85 H 98 09/08/19 07:40 09/08/19 07:40 09/08/19 07:40 09/08/19 07:40 09/08/19 07:40 Doctor's Discharge - Discharge Referrals: SANG DILL PA-C [Primary Care Provider] - Follow up as needed
[2019-09-08] MEDS ORDERED: DEXAMETHASONE SOD PHOS INJ 10 MG/1 ML VIAL IV ONE (10:38)
[2019-09-08] MEDS ORDERED: HYDROMORPHONE HCL INJ/PF 2 MG/ML AMPULE IV ONE (10:38)
--- NOTE | 2019-09-08 10:44 | RADIOLOGY REPORT (SQ) ---
EXAM DESCRIPTION: CHEST 2 VIEWS COMPLETED DATE/TIME: 09/08/2019 10:26 am REASON FOR STUDY: productive cough COMPARISON: None. TECHNIQUE: Frontal and lateral radiographic views of the chest acquired. NUMBER OF VIEWS: Two view. LIMITATIONS: None. FINDINGS: LUNGS AND PLEURA: No opacities, masses or pneumothorax. No pleural effusion. MEDIASTINUM AND HILAR STRUCTURES: No masses or contour abnormalities. HEART AND VASCULAR STRUCTURES: Heart normal size. No evidence for failure. BONES: No acute findings. HARDWARE: None in the chest. OTHER: No other significant finding. IMPRESSION: NO SIGNIFICANT RADIOGRAPHIC FINDING IN THE CHEST. TECHNICAL DOCUMENTATION: JOB ID: [id number] [employer]- All Rights Reserved Reading location - IP/workstation name: [email or web address]
[2019-09-08 11:31] LABS: A TYPE INFLUENZA AG NEGATIVE (NEGATIVE); B INFLUENZA AG NEGATIVE (NEGATIVE)
--- NOTE | 2019-09-08 11:39 | ER Document Report ---
Entered by RENETTA BAIRES SCRIBE 09/08/19 1046 Acting as scribe for:MAYA FRANCE IV, MD ED Headache - General Chief Complaint: Headache Stated Complaint: HEADACHE Time Seen by Provider: 09/08/19 09:32 Primary Care Provider: SANG DILL PA-C [Primary Care Provider] - Follow up as needed Mode of Arrival: Ambulatory Information source: Patient Notes: Patient is a 43 year old female with history of Chiari malformation that presents to the emergency department today with complaints of a headache. Patient has frequent headaches and she has surgery scheduled to correct chiari malformation on September 19. Patient reports that she was given meds in triage which have helped a lot. Patient reports the nausea has now completely resolved but the headache is still there, although it is much more mild now. TRAVEL OUTSIDE OF THE [place] IN LAST 30 DAYS: No - Related Data Allergies/Adverse Reactions: clarithromycin [From Biaxin] Allergy (Verified 09/08/19 07:40) eletriptan HBr [From Relpax] Allergy (Verified 09/08/19 07:40) topiramate [From Trokendi XR] Allergy (Verified 09/08/19 07:40) Home Medications: gabapentin. butorphanol. dihydroergot. levetiracetam. ashlyna Past Medical History - General Information source: Patient - Social History Smoking Status: Never Smoker Cigarette use (# per day): No Chew tobacco use (# tins/day): No Frequency of alcohol use: None Drug Abuse: None Lives with: Family Family History: None Patient has suicidal ideation: No Patient has homicidal ideation: No Neurological Medical History: Reports: Hx Migraine Musculoskeletal Medical History: Reports Hx Arthritis Past Surgical History: Reports: Hx Section, Hx Nose Surgery - spetum repair, Hx Oral Surgery - [place] teeth, Hx Tonsillectomy - Adenoids. Denies: Hx Hysterectomy - Immunizations Hx Diphtheria, Pertussis, Tetanus Vaccination: No Review of Systems - Review of Systems Constitutional: See HPI, Chills. denies: Fever EENT: No symptoms reported Cardiovascular: No symptoms reported Respiratory: See HPI, Cough Gastrointestinal: See HPI, Nausea Genitourinary: No symptoms reported Female Genitourinary: No symptoms reported Musculoskeletal: No symptoms reported Skin: No symptoms reported Hematologic/Lymphatic: No symptoms reported Neurological/Psychological: See HPI, Headaches -: Yes All other systems reviewed and negative Physical Exam - Vital signs Vitals: Temp Pulse Resp BP Pulse Ox 97.3 F 71 16 135/85 H 98 09/08/19 07:40 09/08/19 07:40 09/08/19 07:40 09/08/19 07:40 09/08/19 07:40 - Notes Notes: Physical Exam: General: Alert, appears well. Sitting in a dark room for comfort. Complains of photophobia. HEENT: Normocephalic. Atraumatic. PERRL. Extraocular movements intact. Oropharynx clear. Neck: Supple. Non-tender. Respiratory: No respiratory distress. Clear and equal breath sounds bilaterally. Cardiovascular: Regular rate and rhythm. Abdominal: Normal Inspection. Non-tender. No distension. Normal Bowel Sounds. Back: No gross abnormalities. Extremities: Moves all four extremities. Upper extremities: Normal inspection. Normal ROM. Lower extremities: Normal inspection. No edema. Normal ROM. Neurological: Normal cognition. AAOx4. Normal speech. Psychological: Normal affect. Normal Mood. Skin: Warm. Dry. Normal color. Course - Re-evaluation Re-evalutation: 09/08/19 12:05 Patient states that her nausea and her cough are better. Patient states the pain is the same but is just glad to have some relief of the nausea and cough. Results of ED MSE discussed with patient. Emergency signs and symptoms, reasons to return to the emergency department discussed with patient. All questions were answered prior to discharge. Patient is scheduled for surgery on September 19, 2019 and [facility] with [place] neuro[facility] for her Chiari malformation. - Vital Signs Vital signs: Temp Pulse Resp BP Pulse Ox 97.3 F 71 16 135/85 H 98 09/08/19 07:40 09/08/19 07:40 09/08/19 07:40 09/08/19 07:40 09/08/19 07:40 - Laboratory Laboratory results interpreted by me: Flu swab negative - Diagnostic Test Radiology reviewed: Reports reviewed Discharge - Discharge Clinical Impression: Acute bronchitis Migraine headache Qualifiers: Migraine type: unspecified Status migrainosus presence: with status migrainosus Intractability: intractable Qualified Code(s): G43.911 - Migraine, unspecified, intractable, with status migrainosus Condition: Good Disposition: HOME, SELF-CARE Instructions: Antinausea Medication ([facility]) Additional Instructions: Return to the Emergency Department without delay if any worse. Bronchitis You have acute bronchitis. This disease is an infection or inflammation of the air passageways in your lungs. Symptoms usually include cough, low grade fever, shortness of breath, and wheezing. The cough usually persists for a couple of weeks. Most cases of bronchitis get better without antibiotics. We prescribe antibiotics when we believe bacteria are damaging your airways, or if there's high risk the bronchitis will worsen into pneumonia. Increase your fluid intake. A cool mist humidifier may make your lungs more comfortable. An expectorant (cough medicine that loosens phlegm) can help. If you smoke, STOP!!! Recovery from bronchitis can be somewhat slow, but you should see improvement within a day or two. Repeated episodes of bronchitis may result in lung damage -- for example, chronic bronchitis, recurrent pneumonias, or emphysema. Call the doctor if you develop increasing fever, shortness of breath, chest pain, bloody sputum, or otherwise worsen. If you have not improved at all after several days, contact the physician. HOME CARE INSTRUCTIONS & INFORMATION: Thank you for choosing us for your medical needs. We hope you're satisfied with the care you received. After you leave, you must properly care for your problem and, at the same time, observe its progress. Any condition can change. Some illnesses can change rapidly over hours or days. If your condition worsens, return to the Emergency Department or see your physician promptly. ABOUT YOUR X-RAYS AND EKG'S: If you had an EKG or X-rays taken, they have been read by the Emergency Physician. The X-rays and EKG's will also be read by a Radiologist or [employer] within 24 hours. If discrepancies are noted, you will be notified by telephone. Please be certain the ED has a correct telephone number & address where you can be reached. Also, realize that some fractures or abnormalities do not show up on initial X-rays. If your symptoms continue, see your physician. ABOUT YOUR LABORATORY TEST: If you had laboratory tests, the results have been reviewed by the Emergency Physician. Some test results (for example cultures) may not be available for several days. You will be contacted if any test result shows you need additional treatment. Please be certain the ED has a correct telephone number and address where you can be reached. ABOUT YOUR MEDICATIONS: You will receive instructions on how to take your medicine on the prescription label you receive. Additional information may be provided by the Pharmacy. If you have questions afterwards, call the ED for clarification or further instructions. Some prescribed medications may cause drowsiness. Do not perform tasks such as driving a car or operating machinery without consulting your Pharmacist. If you feel you need a refill of pain medication, your condition will need re-evaluation. Please do not call for a refill of any medication. ABOUT YOUR SIGNATURE: Signature of this document acknowledges to followin. Understanding that you received emergency treatment and that you may be released before al medical problems are known or treated. Please be certain the ED has a correct phone number & address where you can be reached. 2. Acknowledgement that you will arrange for follow-up care as recommended. 3. Authorization for the Emergency Physician to provide information to your follow-up Physician in order to maximize your care. AT ANY TIME, IF YOUR SYMPTOMS CHANGE SIGNIFICANTLY OR WORSEN OR YOU DEVELOP NEW SYMPTOMS, RETURN TO THE EMERGENCY DEPARTMENT IMMEDIATELY FOR RE-EVALUATION. OUR GOAL IS TO PROVIDE EXCELLENT MEDICAL CARE! WE HOPE THAT WE HAVE MET YOUR EXPECTATIONS DURING YOUR EMERGENCY DEPARTMENT VISIT AND THAT YOU FEEL YOU HAVE RECEIVED EXCELLENT CARE! Prescriptions: Benzonatate [Tessalon Perles 100 mg Capsule] 200 mg PO Q8HP PRN #30 capsule PRN Reason: Cough Ondansetron [Zofran Odt 4 mg Tablet] 1 - 2 tab PO Q48HP PRN #30 tab.rapdis PRN Reason: For Nausea/Vomiting Referrals: SANG DILL PA-C [Primary Care Provider] - Follow up as needed I personally performed the services described in the documentation, reviewed and edited the documentation which was dictated to the scribe in my presence, and it accurately records my words and actions.
[2019-09-08 12:21] VITALS: BP 111/71
== END 2019-09-08 12:22 | disposition home or self-care (01) ==
LOC: ER 07:35
DX: J20.9 Acute bronchitis, unspecified (principal); G43.911 Migraine, unspecified, intractable, with status migrainosus
CPT/HCPCS: 99283; 96361; 96374; 96375; 87804; 71046; J1200; J1885; J2765; J1170; J7030; J1100

== ENCOUNTER 2019-12-11 08:20 | Emergency (ER) | payer BC ==
[2019-12-11] MEDS ORDERED: KETOROLAC TROMETHAMINE INJ/PF 30 MG/1 ML SDV IV ONE (09:33)
[2019-12-11] MEDS ORDERED: DIPHENHYDRAMINE HCL 50 MG/ML VIAL IV ONE (09:33)
[2019-12-11] MEDS ORDERED: METOCLOPRAMIDE HCL INJ/PF 10 MG/2 ML SDV IV ONE (09:33)
--- NOTE | 2019-12-11 09:33 | ER Document Report ---
ED General - General Chief Complaint: Headache Stated Complaint: MIGRAINE Time Seen by Provider: 12/11/19 09:07 Primary Care Provider: SANG DILL PA-C [Primary Care Provider] - Follow up as needed TRAVEL OUTSIDE OF THE [place] IN LAST 30 DAYS: No - HPI Notes: Patient is a 44-year-old female who presents to the emergency department for evaluation of a right-sided headache. It is typical of her normal migraines. She states that started in the middle of the night. It is worsened by bright light, loud noises. Nothing seems to make it better. She did try some oral Toradol this morning. She is on prophylactic verapamil. She has had minimal URI symptoms lately, including runny nose or cough, mild sore throat. She denies any fevers. No neck stiffness. No difficulty seeing, speaking, swallowing. Moving arms and legs without difficulty. She currently puts her pain at a 4 out of 5. - Related Data Allergies/Adverse Reactions: clarithromycin [From Biaxin] Allergy (Verified 12/11/19 08:35) eletriptan HBr [From Relpax] Allergy (Verified 12/11/19 08:35) topiramate [From Trokendi XR] Allergy (Verified 12/11/19 08:35) Home Medications: Verapamil, ketorolac, oral contraceptives Past Medical History - General Information source: Patient - Social History Smoking Status: Never Smoker Family History: None Patient has suicidal ideation: No Patient has homicidal ideation: No - Past Medical History Cardiac Medical History: Denies: Hx Coronary Artery Disease, Hx Heart Attack, Hx Hypertension Pulmonary Medical History: Denies: Hx Asthma, Hx Bronchitis, Hx COPD, Hx Pneumonia Neurological Medical History: Reports: Hx Migraine, Other - Chiari malformation. Denies: Hx Cerebrovascular Accident, Hx Seizures Renal/ Medical History: Denies: Hx Peritoneal Dialysis Musculoskeletal Medical History: Reports Hx Arthritis Past Surgical History: Reports: Hx Section, Hx Neurologic Surgery - Chiari malformation, Hx Nose Surgery - spetum repair, Hx Oral Surgery - [place] teeth, Hx Tonsillectomy - Adenoids. Denies: Hx Hysterectomy - Immunizations Hx Diphtheria, Pertussis, Tetanus Vaccination: No Review of Systems - Review of Systems EENT: See HPI Respiratory: See HPI Neurological/Psychological: See HPI Physical Exam - Vital signs Vitals: Temp Pulse Resp BP Pulse Ox 98.2 F 72 18 136/77 H 99 12/11/19 08:24 12/11/19 08:24 12/11/19 08:24 12/11/19 08:24 12/11/19 08:24 - Notes Notes: Vital signs reviewed, please refer to chart. Head is normocephalic, atraumatic. Pupils equal round, reactive to light. Neck is supple without meningismus. Heart is regular rate and rhythm. Lungs are clear to auscultation bilaterally. Abdomen is soft, nontender, normoactive bowel sounds throughout. Extremities without cyanosis, clubbing. Posterior calves are nontender. Peripheral pulses are equal. Skin is warm and dry. Patient is awake, alert, oriented x3. Cranial nerves II - XII are grossly intact without focal neurological deficits. Strength is plus 5 out of 5 bilateral upper and lower extremities. Sensation is intact. Reflexes symmetrical. Intact [id number], rapid alternating movements, [id number]. Course - Re-evaluation Re-evalutation: 12/11/19 09:33 Patient presents to the emergency department for evaluation. She has complaints of a typical migraine. We will try migraine cocktail, IV fluids. Patient is amenable to this plan. She has no neurological deficits, this is a typical headache for her. We will continue to monitor for response. 12/11/19 11:44 Patient feeling significantly improved. We will discharge her to home, she is to follow-up with primary care/neurology. She should return to the ED with worsening. - Vital Signs Vital signs: Temp Pulse Resp BP Pulse Ox 98.2 F 72 18 136/77 H 99 12/11/19 08:24 12/11/19 08:24 12/11/19 08:24 12/11/19 08:24 12/11/19 08:24 Discharge - Discharge Clinical Impression: Migraine headache Qualifiers: Migraine type: without aura Status migrainosus presence: with status migrainosus Intractability: not intractable Qualified Code(s): G43.001 - Migraine without aura, not intractable, with status migrainosus Condition: Stable Disposition: HOME, SELF-CARE Instructions: Headache ([facility]), Toradol Injection ([facility]), Reglan ([facility]) Additional Instructions: Rest, stay well-hydrated. Continue your medications at home as prescribed. Follow-up with primary care and neurology in 1 to 2 weeks. Return to the ED with worsening or new concerning symptoms of any sort. Referrals: SANG DILL PA-C [Primary Care Provider] - Follow up as needed
[2019-12-11] MEDS ORDERED: NORMAL SALINE 1000 ML 1,000 ML IV ONE (09:34)
[2019-12-11 12:07] VITALS: BP 126/70
== END 2019-12-11 12:09 | disposition home or self-care (01) ==
LOC: ER 08:20
DX: G43.001 Migraine without aura, not intractable, with status migrainosus (principal); Z79.899 Other long term (current) drug therapy; Z79.3 Long term (current) use of hormonal contraceptives; J02.9 Acute pharyngitis, unspecified; Z88.1 Allergy status to other antibiotic agents
CPT/HCPCS: 99283; 96361; 96374; 96375; J1200; J1885; J2765; J7030

== ENCOUNTER 2020-01-09 19:07 | Emergency (ER) | payer BC ==
[2020-01-09 19:15] VITALS: BP 141/84
--- NOTE | 2020-01-09 19:48 | ER Document Report ---
HPI - HPI Time Seen by Provider: 01/09/20 19:12 Pain Level: 3 Notes: 44-year-old female patient presents the emergency department chief complaint of laceration just above her right eyebrow. She states that she fell while taking out her trash, she tripped on the driveway and hit her face onto the cement. There is no active bleeding noted at this time. Patient reports Tdap is up-to-date. - CONSTITUTIONAL Constitutional: DENIES: Fever, Chills - REPRODUCTIVE Reproductive: DENIES: : Past Medical History - General Information source: Patient - Social History Smoking Status: Never Smoker Chew tobacco use (# tins/day): No Frequency of alcohol use: Rare Drug Abuse: None Family History: None Patient has suicidal ideation: No Patient has homicidal ideation: No - Past Medical History Cardiac Medical History: Denies: Hx Coronary Artery Disease, Hx Heart Attack, Hx Hypertension Pulmonary Medical History: Denies: Hx Asthma, Hx Bronchitis, Hx COPD, Hx Pneumonia Neurological Medical History: Reports: Hx Migraine. Denies: Hx Cerebrovascular Accident, Hx Seizures Renal/ Medical History: Denies: Hx Peritoneal Dialysis Musculoskeletal Medical History: Reports Hx Arthritis Past Surgical History: Reports: Hx Section, Hx Neurologic Surgery - Chiari malformation, Hx Nose Surgery - spetum repair, Hx Oral Surgery - [place] teeth, Hx Tonsillectomy - Adenoids. Denies: Hx Hysterectomy - Immunizations Hx Diphtheria, Pertussis, Tetanus Vaccination: No Vertical Provider Document - CONSTITUTIONAL Notes: PHYSICAL EXAMINATION: GENERAL: Well-appearing, well-nourished and in no acute distress. HEAD: Atraumatic, normocephalic. EYES: Pupils equal round extraocular movements intact, conjunctiva are normal. ENT: Nares patent NECK: Normal range of motion LUNGS: No respiratory distress Musculoskeletal: Normal range of motion NEUROLOGICAL: Normal speech, normal gait. PSYCH: Normal mood, normal affect. SKIN: 2 cm laceration to the lateral aspect of the right eyebrow, approximates well, no active bleeding noted. - INFECTION CONTROL TRAVEL OUTSIDE OF THE [place] IN LAST 30 DAYS: No Course - Re-evaluation Re-evalutation: Laceration repaired with Dermabond, patient tolerated well. Patient will be discharged home at this time. - Vital Signs Vital signs: Temp Pulse Resp BP Pulse Ox 98.3 F 98 16 141/84 H 98 01/09/20 19:14 01/09/20 19:14 01/09/20 19:14 01/09/20 19:14 01/09/20 19:14 Procedures - Laceration/Wound Repair Right eyebrow Wound length (cm): 2 Wound's Depth, Shape: Superficial Wound Repaired With: Dermabond Discharge - Discharge Clinical Impression: Facial laceration Qualifiers: Encounter type: initial encounter Qualified Code(s): S01.81XA - Laceration without foreign body of other part of head, initial encounter Condition: Stable Disposition: HOME, SELF-CARE Additional Instructions: Dermabond (Skin Adhesive Closure) Skin adhesive (such as Dermabond) is a quick-drying glue that remains slightly flexible while it holds wound edges together. It can substitute for stitches on some cuts. The film will usually fall off the skin after 5 to 10 days. Keep the wound area clean and dry. Do not soak or scrub the wound. Don't swim. You can shower briefly after 24 hours. Gently blot the area dry with a soft towel. Don't apply ointments. If there is a dressing, change it immediately if it gets wet. Do not place tape directly over the adhesive film, because the tape may pull the film off your skin as you remove it. Don't bump the wound area. If there's risk of injury, keep the area well- padded. Avoid stretching of the skin. Do not scratch or pick at the adhesive film. Avoid prolonged exposure to sunlight or tanning lamps. Return if there is increasing pain, swelling, redness, or drainage, or if the wound edges seem to open or separate. Referrals: SANG DILL PA-C [Primary Care Provider] - Follow up as needed
== END 2020-01-09 20:10 | disposition home or self-care (01) ==
LOC: ER 19:07
DX: S01.81XA Laceration without foreign body of other part of head, initial encounter (principal); W18.30XA Fall on same level, unspecified, initial encounter; Y93.E9 Activity, other interior property and clothing maintenance; Y92.009 Unspecified place in unspecified non-institutional (private) residence as the place of occurrence of the external cause
CPT/HCPCS: 99282

== ENCOUNTER → 2020-03-07 | Outpatient (CLI) | payer BC | LOC: RAD 14:59 | PROVIDERS: ATTEND Student in an Organized Health Care Education/Training Program | DX: E23.0 Hypopituitarism (principal) | CPT/HCPCS: 70553; A9576 ==

== ENCOUNTER 2020-06-18 08:07 | Emergency (ER) | payer BC ==
[2020-06-18] MEDS ORDERED: KETOROLAC TROMETHAMINE INJ/PF 30 MG/1 ML SDV IV ONE (08:53)
[2020-06-18] MEDS ORDERED: NORMAL SALINE 1000 ML 1,000 ML IV ONE (08:53)
[2020-06-18] MEDS ORDERED: DIPHENHYDRAMINE HCL 50 MG/ML VIAL IV ONE (08:53)
[2020-06-18] MEDS ORDERED: METOCLOPRAMIDE HCL INJ/PF 10 MG/2 ML SDV IV ONE (08:53)
[2020-06-18] MEDS ORDERED: DEXAMETHASONE SOD PHOS INJ 10 MG/1 ML VIAL IV ONE (08:54)
--- NOTE | 2020-06-18 09:05 | ER Document Report ---
ED Headache - General Stated Complaint: HEADACHE Time Seen by Provider: 06/18/20 08:49 Primary Care Provider: PAULA GRIGSBY MD [NO LOCAL MD] - Follow up as needed Notes: CHIEF COMPLAINT: Migraine headache HPI: 44-year-old female with history of chronic daily headaches presenting for 3 days of worsened right head pain that she states is consistent with her history of migraines. Has had nausea no vomiting. Follows with neurology in [place]. States she is on multiple medications that have not been helping. ROS: See HPI - all other systems were reviewed and are otherwise negative Constitutional: no fever Eyes: no drainage, no blurred vision ENT: no runny nose, no sore throat Cardiovascular: no chest pain Resp: no SOB, no cough GI: no vomiting, no diarrhea, no abdominal pain, positive nausea : no dysuria Integumentary: no rash Allergy: no hives Musculoskeletal: no extremity pain or swelling Neurological: no numbness/tingling, no weakness, positive headache MEDICATIONS: I agree with the patient medications as charted by the RN. ALLERGIES: I agree with the allergies as charted by the RN. PAST MEDICAL HISTORY/PAST SURGICAL HISTORY: Reviewed and agree as charted by RN. SOCIAL HISTORY: Reviewed and agree as charted by RN. FAMILY HISTORY: No significant familial comorbid conditions directly related to patient complaint EXAM: Reviewed vital signs as charted by RN. CONSTITUTIONAL: Alert and oriented and responds appropriately to questions. Well-appearing; well-nourished HEAD: Normocephalic; atraumatic. EYES: PERRL; Conjunctivae clear, sclerae non-icteric. No photophobia. ENT: normal nose; no rhinorrhea; moist mucous membranes; pharynx without lesions noted, no uvula edema or deviation, no tonsillar hypertrophy, phonation normal NECK: Supple without meningismus; non-tender; no cervical lymphadenopathy, no masses CARD: RRR; no murmurs, no clicks, no rubs, no gallops; symmetric distal pulses RESP: Normal chest excursion without splinting or tachypnea; breath sounds clear and equal bilaterally; no wheezes, no rhonchi, no rales, pulse oximetry 98% on room air not hypoxic ABD/GI: Normal bowel sounds; non-distended; soft, non-tender, no rebound, no guarding; no palpable organomegaly or masses. BACK: The back appears normal and is non-tender to palpation, there is no CVA tenderness EXT: Normal ROM in all joints; non-tender to palpation; no cyanosis, no effusions, no edema SKIN: Normal color for age and race; warm; dry; good turgor; no acute lesions noted NEURO: Moves all extremities equally; Motor and sensory function intact. Alert and oriented x3 answering all questions appropriately moving all extremities equally with intact strength and sensation. PSYCH: The patient's mood and manner are appropriate. Grooming and personal hygiene are appropriate. MDM: 44-year-old female history of chronic daily headaches. 3 days of worsened headache on the right side. States first round of medications when she presents for evaluation generally do not work. On review of her records she has been here multiple times in the past for headache. Has received Decadron and Benadryl previously. Will give Toradol, Reglan, Benadryl, Decadron initially TRAVEL OUTSIDE OF THE [place] IN LAST 30 DAYS: No - Related Data Allergies/Adverse Reactions: clarithromycin [From Biaxin] Allergy (Verified 01/09/20 19:18) eletriptan HBr [From Relpax] Allergy (Verified 01/09/20 19:18) Sulfa (Sulfonamide Antibiotics) Allergy (Verified 06/18/20 09:08) topiramate [From Trokendi XR] Allergy (Verified 01/09/20 19:18) Past Medical History - Social History Smoking Status: Never Smoker Family History: None - Past Medical History Cardiac Medical History: Denies: Hx Coronary Artery Disease, Hx Heart Attack, Hx Hypertension Pulmonary Medical History: Denies: Hx Asthma, Hx Bronchitis, Hx COPD, Hx Pneumonia Neurological Medical History: Reports: Hx Migraine. Denies: Hx Cerebrovascular Accident, Hx Seizures Renal/ Medical History: Denies: Hx Peritoneal Dialysis Musculoskeletal Medical History: Reports Hx Arthritis Past Surgical History: Reports: Hx Section, Hx Neurologic Surgery - Chiari malformation, Hx Nose Surgery - spetum repair, Hx Oral Surgery - [place] teeth, Hx Tonsillectomy - Adenoids. Denies: Hx Hysterectomy - Immunizations Hx Diphtheria, Pertussis, Tetanus Vaccination: No Physical Exam - Vital signs Vitals: Temp Pulse Resp BP Pulse Ox 98.6 F 85 16 145/80 H 100 06/18/20 08:20 06/18/20 08:20 06/18/20 08:20 06/18/20 08:20 06/18/20 08:20 Course - Re-evaluation Re-evalutation: 06/18/20 10:25 Patient received her medications approximately 25 to 30 minutes ago she reports no change in her symptoms but is in no visible distress in the room we will continue to monitor she is still receiving her IV fluids 06/18/20 11:32 Headache is resolved at this time, patient feels much better, requesting to go home will discharge follow-up PCP - Vital Signs Vital signs: Temp Pulse Resp BP Pulse Ox 98.3 F 70 16 142/82 H 98 06/18/20 11:26 06/18/20 11:26 06/18/20 11:26 06/18/20 11:26 06/18/20 11:26 Discharge - Discharge Clinical Impression: Migraine headache Qualifiers: Migraine type: other Status migrainosus presence: without status migrainosus Intractability: not intractable Qualified Code(s): G43.809 - Other migraine, not intractable, without status migrainosus Condition: Stable Disposition: HOME, SELF-CARE Additional Instructions: Continue your previous medications for migraine, follow-up with your neurologist and primary care provider for reevaluation of symptoms call for appointment Referrals: PAULA GRIGSBY MD [NO LOCAL MD] - Follow up as needed
[2020-06-18 09:48] LABS: APPEARANCE,URINE SLIGHTLY-CLOUDY; BILIRUBIN,URINE NEGATIVE (NEGATIVE); COLOR,URINE YELLOW; GLUCOSE, URINE NEGATIVE (NEGATIVE); KETONES,URINE NEGATIVE (NEGATIVE); LEUKOCYTE ESTERASE,URINE NEGATIVE (NEGATIVE); NITRITE,URINE NEGATIVE (NEGATIVE); PROTEIN,URINE NEGATIVE (NEGATIVE); URINE SPECIFIC GRAVITY 1.029; UROBILINOGEN,URINE NEGATIVE mg/dL (<2.0)
[2020-06-18 11:28] VITALS: BP 142/82
== END 2020-06-18 11:45 | disposition home or self-care (01) ==
LOC: ER 08:07
DX: G43.909 Migraine, unspecified, not intractable, without status migrainosus (principal); Z79.899 Other long term (current) drug therapy; Z88.1 Allergy status to other antibiotic agents; Z88.2 Allergy status to sulfonamides; Z88.6 Allergy status to analgesic agent
CPT/HCPCS: 99284; 96361; 96374; 96375; 81001; J1200; J1885; J2765; J7030; J1100

== ENCOUNTER 2020-06-25 15:43 | Emergency (ER) | payer BC ==
[2020-06-25] MEDS ORDERED: ASPIRIN 325 MG TABLET PO ONE (16:40)
--- NOTE | 2020-06-25 16:42 | ER Document Report ---
ED Medical Screen (RME) - General Chief Complaint: Blood Pressure Problem Stated Complaint: HIGH BLOOD PRESSURE - DR REFERRED Time Seen by Provider: 06/25/20 16:35 Primary Care Provider: SANG DILL PA-C [Primary Care Provider] - Follow up as needed TRAVEL OUTSIDE OF THE [place] IN LAST 30 DAYS: No - HPI Notes: 06/25/20 16:41 44-year-old female to the emergency department with complaints of left-sided chest burning, diaphoresis, nausea that began today. She also states for the past couple of weeks she has been running high in her blood pressure. She does not have a history of elevated blood pressure. She currently is taking oral contraceptives, gabapentin, Toradol. She has never had a heart attack. She denies any fevers, chills, cough, headache. She states that she was seen by her primary care physician today and when she explained the symptoms to them that she was sent here. She denies any leg swelling, leg pain. I performed a brief medical screening exam on the patient determined that the patient needs further evaluation and management by main side provider. I have placed initial orders to help expedite care. - Related Data Allergies/Adverse Reactions: clarithromycin [From Biaxin] Allergy (Verified 06/25/20 16:16) eletriptan HBr [From Relpax] Allergy (Verified 06/25/20 16:16) Sulfa (Sulfonamide Antibiotics) Allergy (Verified 06/25/20 16:16) topiramate [From Trokendi XR] Allergy (Verified 06/25/20 16:16) Home Medications: KETOROLAC TROMETHAMINE. GABAPENTIN. CONTROL. MOBIC Past Medical History - Social History Chew tobacco use (# tins/day): No Frequency of alcohol use: None Drug Abuse: None - Past Medical History Cardiac Medical History: Denies: Hx Coronary Artery Disease, Hx Heart Attack, Hx Hypertension Pulmonary Medical History: Denies: Hx Asthma, Hx Bronchitis, Hx COPD, Hx Pneumonia Neurological Medical History: Reports: Hx Migraine. Denies: Hx Cerebrovascular Accident, Hx Seizures Renal/ Medical History: Denies: Hx Peritoneal Dialysis Musculoskeltal Medical History: Reports Hx Arthritis Past Surgical History: Reports: Hx Section, Hx Neurologic Surgery - Chiari malformation, Hx Nose Surgery - spetum repair, Hx Oral Surgery - [place] teeth, Hx Tonsillectomy - Adenoids. Denies: Hx Hysterectomy - Immunizations Hx Diphtheria, Pertussis, Tetanus Vaccination: No Physical Exam - Vital signs Vitals: Temp Pulse Resp BP Pulse Ox 98.5 F 83 17 150/87 H 100 06/25/20 15:58 06/25/20 15:58 06/25/20 15:58 06/25/20 15:58 06/25/20 15:58 Course - Vital Signs Vital signs: Temp Pulse Resp BP Pulse Ox 98.5 F 83 17 150/87 H 100 06/25/20 16:16 06/25/20 15:58 06/25/20 15:58 06/25/20 15:58 06/25/20 15:58 Doctor's Discharge - Discharge Referrals: SANG DILL PA-C [Primary Care Provider] - Follow up as needed
[2020-06-25 17:01] LABS: ABSOLUTE BASOPHILS # (AUTO) 0.1 10^3/uL (0.0-0.2); ABSOLUTE EOSINOPHILS # (AUTO) 0.1 10^3/uL (0.0-0.6); ABSOLUTE LYMPHOCYTES (AUTO) 2.4 10^3/uL (0.5-4.7); ABSOLUTE MONOCYTES (AUTO) 0.7 10^3/uL (0.1-1.4); ABSOLUTE NEUT (AUTO) 4.9 10^3/uL (1.7-8.2); BASOPHILS % (AUTO) 0.7 % (0-2); EOSINOPHILS % (AUTO) 1.3 % (0-6); HEMATOCRIT 44.4 % (36.0-47.0); LYMPHOCYTES % (AUTO) 30.1 % (13-45); MEAN CORPUSCULAR HEMOGLOBIN 29.6 pg (27.0-33.4); MEAN CORPUSCULAR HGB CONC 33.8 g/dL (32.0-36.0); MEAN CORPUSCULAR VOLUME 88 fl (80-97); MONOCYTES % (AUTO) 8.2 % (3-13); PLATELET COUNT 248 10^3/uL (150-450); RED BLOOD COUNT 5.06 10^6/uL (3.72-5.28); SEGMENTED NEUTROPHILS % (AUTO) 59.7 % (42-78); TOTAL CELLS COUNTED % (AUTO) 100 %; WHITE BLOOD COUNT 8.1 10^3/uL (4.0-10.5)
[2020-06-25 17:20] LABS: ALBUMIN 4.1 g/dL (3.5-5.0); ALKALINE PHOSPHATASE 29 U/L (38-126); ANION GAP 7 (5-19); ASPARTATE AMINO TRANSFERASE 20 U/L (14-36); BILIRUBIN,DIRECT 0.4 mg/dL (0.0-0.4); BILIRUBIN,TOTAL 0.4 mg/dL (0.2-1.3); BLOOD UREA NITROGEN 13 mg/dL (7-20); CALCIUM 9.1 mg/dL (8.4-10.2); CARBON DIOXIDE 24 mmol/L (22-30); CHLORIDE 108 mmol/L (98-107); CREATINE KINASE 61 U/L (30-135); GLUCOSE 89 mg/dL (75-110); POTASSIUM 4.3 mmol/L (3.6-5.0); TOTAL PROTEIN 6.7 g/dL (6.3-8.2)
--- NOTE | 2020-06-25 17:20 | RADIOLOGY REPORT (SQ) ---
EXAM DESCRIPTION: CHEST 2 VIEWS IMAGES COMPLETED DATE/TIME: 06/25/2020 5:10 pm REASON FOR STUDY: CHEST PAIN WITH ELEVATED BP COMPARISON: 09/08/2019 TECHNIQUE: Frontal and lateral radiographic views of the chest acquired. NUMBER OF VIEWS: Two view. LIMITATIONS: None. FINDINGS: LUNGS AND PLEURA: No opacities, masses or pneumothorax. No pleural effusion. MEDIASTINUM AND HILAR STRUCTURES: No masses or contour abnormalities. HEART AND VASCULAR STRUCTURES: Heart normal size. No evidence for failure. BONES: No acute findings. HARDWARE: None in the chest. OTHER: No other significant finding. IMPRESSION: NO SIGNIFICANT RADIOGRAPHIC FINDING IN THE CHEST. TECHNICAL DOCUMENTATION: JOB ID: [id number] [employer]- All Rights Reserved Reading location - IP/workstation name: [email or web address]
[2020-06-25 17:30] LABS: CREATINE KINASE MB 0.59 ng/mL (<4.55)
[2020-06-25 17:32] LABS: TROPONIN I < 0.012 ng/mL
[2020-06-25] MEDS ORDERED: MAG HYDROX/AL HYDROX/SIMETH SUSP 30 ML UDCUP PO ONE (18:43)
[2020-06-25] MEDS ORDERED: LIDOCAINE 2% VISCOUS SOLN 15 ML UDCUP PO ONE (18:43)
--- NOTE | 2020-06-25 18:49 | ER Document Report ---
ED General - General Chief Complaint: Blood Pressure Problem Stated Complaint: HIGH BLOOD PRESSURE - DR REFERRED Time Seen by Provider: 06/25/20 16:35 Primary Care Provider: SANG DILL PA-C [Primary Care Provider] - Follow up as needed TRAVEL OUTSIDE OF THE [place] IN LAST 30 DAYS: No - HPI Notes: Patient is a 44-year-old female who presents to the emergency department for na luation of chest pain. She states it feels like a "sunburn on the inside" that started while at rest this morning. She was watching her children do virtual school. She has some nausea, but states this has been ongoing. She described associated diaphoresis and dizziness with this pain today. Is been constant since onset. Nothing seems to make it better or worse. The patient does have a history of indigestion, states she is really not taking anything for it. She is to see a high school music director but this was "years ago." She has not had a recent EGD. She denies any melena or hematochezia. She does have some constipation, which she states is not abnormal for her. She admits to taking Toradol or Aleve for over a year. She states she does not take any food with this medication. - Related Data Allergies/Adverse Reactions: clarithromycin [From Biaxin] Allergy (Verified 06/25/20 16:16) eletriptan HBr [From Relpax] Allergy (Verified 06/25/20 16:16) Sulfa (Sulfonamide Antibiotics) Allergy (Verified 06/25/20 16:16) topiramate [From Trokendi XR] Allergy (Verified 06/25/20 16:16) Home Medications: KETOROLAC TROMETHAMINE. GABAPENTIN. CONTROL. MOBIC Past Medical History - General Information source: Patient - Social History Smoking Status: Never Smoker Chew tobacco use (# tins/day): No Frequency of alcohol use: None Drug Abuse: None Family History: None, Reviewed & Not Pertinent Patient has homicidal ideation: No - Past Medical History Cardiac Medical History: Denies: Hx Coronary Artery Disease, Hx Heart Attack, Hx Hypertension Pulmonary Medical History: Denies: Hx Asthma, Hx Bronchitis, Hx COPD, Hx Pneumonia Neurological Medical History: Reports: Hx Migraine - History of Chiari malformation. Denies: Hx Cerebrovascular Accident, Hx Seizures Renal/ Medical History: Denies: Hx Peritoneal Dialysis Musculoskeletal Medical History: Reports Hx Arthritis Past Surgical History: Reports: Hx Section, Hx Neurologic Surgery - Chiari malformation, Hx Nose Surgery - spetum repair, Hx Oral Surgery - [place] teeth, Hx Tonsillectomy - Adenoids. Denies: Hx Hysterectomy - Immunizations Hx Diphtheria, Pertussis, Tetanus Vaccination: No Review of Systems - Review of Systems Constitutional: No symptoms reported EENT: No symptoms reported Cardiovascular: See HPI Respiratory: No symptoms reported Gastrointestinal: See HPI Genitourinary: No symptoms reported Musculoskeletal: No symptoms reported Skin: No symptoms reported Neurological/Psychological: See HPI Physical Exam - Vital signs Vitals: Temp Pulse Resp BP Pulse Ox 98.5 F 83 17 150/87 H 100 06/25/20 15:58 06/25/20 15:58 06/25/20 15:58 06/25/20 15:58 06/25/20 15:58 - Notes Notes: Vital signs reviewed, please refer to chart. Head is normocephalic, atraumatic. Pupils equal round, reactive to light. Neck is supple without meningismus. Heart is regular rate and rhythm. Lungs are clear to auscultation bilaterally. No visual abnormalities on inspection of the chest wall. Chest wall is markedly tender to palpation. Abdomen is soft, nontender, normoactive bowel sounds throughout. Extremities without cyanosis, clubbing. Posterior calves are nontender. Peripheral pulses are equal. Skin is warm and dry. Patient is awake, alert, neurological exam is nonfocal. Course - Re-evaluation Re-evalutation: 06/25/20 18:56 Patient is a 44-year-old female who presents to the emergency department for evaluation of chest pain. It came on at rest. It is been constant since onset this morning. She describes it as a burning. Certainly this would be very atypical for any sort of anginal pain. On exam she is markedly tender. She also has a history of "indigestion" which would certainly also fit this picture. I told the patient it is advisable that she take her ketorolac with food. At this point her EKG is unremarkable. Still awaiting her troponin, but I do believe she is low risk. Patient will be treated with a GI cocktail and we will reassess for response. Patient is currently stable. 06/25/20 18:56 Please note I also discussed this patient's mildly elevated blood pressure. She states this is been ongoing for the last few weeks. I certainly do not see any indication for urgent lowering of her blood pressure at this time. I encouraged lifestyle modification, continual monitoring, and discussion with her primary care provider in regards to whether or not pharmacological therapy may be indicated. 06/25/20 20:44 Patient had a little in the way of relief with a GI cocktail. I still more strongly suspect a musculoskeletal etiology for this patient's pain. It was nonexertional. She has minimal risk factors. She is encouraged to follow-up with her primary care provider regarding her blood pressure. She is also again encouraged to take her Toradol with food. Otherwise, she is to continue her home medications, follow-up with PCP this week, return to the ED with worsening or new concerning symptoms of any sort. - Vital Signs Vital signs: Temp Pulse Resp BP Pulse Ox 98.5 F 83 20 131/86 H 97 06/25/20 16:16 06/25/20 15:58 06/25/20 20:01 06/25/20 20:01 06/25/20 20:01 - Laboratory Result Diagrams: 06/25/20 16:50 06/25/20 16:50 Laboratory results interpreted by me: 06/25/20 16:50 Chloride 108 H Alkaline Phosphatase 29 L - Diagnostic Test Radiology reviewed: Reports reviewed Radiology results interpreted by me: 06/25/20 18:49 Chest X-Ray 06/25/20 00:00 IMPRESSION: NO SIGNIFICANT RADIOGRAPHIC FINDING IN THE CHEST. - EKG Interpretation by Me Additional EKG results interpreted by me: 06/25/20 18:56 Sinus mechanism with a rate of 69 bpm. Normal axis and intervals. No acute ST changes concerning for ischemia or infarction. Discharge - Discharge Clinical Impression: Chest pain Qualifiers: Chest pain type: unspecified Qualified Code(s): R07.9 - Chest pain, unspecified Condition: Stable Disposition: HOME, SELF-CARE Instructions: Chest Pain of Unclear Cause ([facility]), Chest Wall Pain ([facility]) Additional Instructions: No clear cause was identified for your chest pain today. It is likely musculoskeletal, but further work-up may be advisable. Please follow-up with your primary care this week. Also discuss your elevated blood pressure, they may elect to start you on a low-dose medication to control this better. Continue lifestyle modifications. If you develop worsening pain or new or concerning symptoms of any sort, please return immediately to the ER for further evaluation. Referrals: SANG DILL PA-C [Primary Care Provider] - Follow up as needed
--- NOTE | 2020-06-25 19:18 | EKG REPORT ---
SEVERITY:- NORMAL ECG - SINUS RHYTHM : Confirmed by: Ivonne Chandler MD 25-Jun-2020 19:17:24
[2020-06-25 21:32] VITALS: BP 143/94
== END 2020-06-25 21:30 | disposition home or self-care (01) ==
LOC: ER 15:43
DX: R07.9 Chest pain, unspecified (principal); R11.0 Nausea; K59.00 Constipation, unspecified
CPT/HCPCS: 93005; 99285; 36415; 82553; 82550; 85025; 80053; 84484; 71046; 93010; J3490

== ENCOUNTER 2020-06-28 14:50 | Emergency (ER) | payer BC ==
--- NOTE | 2020-06-28 15:18 | ER Document Report ---
ED Medical Screen (RME) - General Chief Complaint: Leg Pain Stated Complaint: LEFT LEG PAIN,DIZZINESS, Time Seen by Provider: 06/28/20 15:03 Primary Care Provider: SANG DILL PA-C [Primary Care Provider] - Follow up as needed TRAVEL OUTSIDE OF THE [place] IN LAST 30 DAYS: No - HPI Notes: 06/28/20 15:16 44-year-old female to the emergency department with persistent chest pain, nausea, headache, and new left leg pain. She has been experiencing the chest pain nausea and headache for over a week and was initially sent in to the department approximately 3 days ago by her primary care physician. At that time she did not complain of left leg pain. She states she saw her primary care physician again and expressed concern over the left leg pain and he sent her here to get a ultrasound of the leg. She is on oral contraceptives. She is not recently been traveling. She states that she has her typical migraine but she has not been able to control at home either. Denies any other symptoms. My RME - Related Data Allergies/Adverse Reactions: clarithromycin [From Biaxin] Allergy (Verified 06/28/20 15:11) eletriptan HBr [From Relpax] Allergy (Verified 06/28/20 15:11) Sulfa (Sulfonamide Antibiotics) Allergy (Verified 06/28/20 15:11) topiramate [From Trokendi XR] Allergy (Verified 06/28/20 15:11) Past Medical History - Past Medical History Cardiac Medical History: Denies: Hx Coronary Artery Disease, Hx Heart Attack, Hx Hypertension Pulmonary Medical History: Denies: Hx Asthma, Hx Bronchitis, Hx COPD, Hx Pneumonia Neurological Medical History: Reports: Hx Migraine - History of Chiari malforma tion. Denies: Hx Cerebrovascular Accident, Hx Seizures Renal/ Medical History: Denies: Hx Peritoneal Dialysis Musculoskeltal Medical History: Reports Hx Arthritis Past Surgical History: Reports: Hx Section, Hx Neurologic Surgery - Chiari malformation, Hx Nose Surgery - spetum repair, Hx Oral Surgery - [place] teeth, Hx Tonsillectomy - Adenoids. Denies: Hx Hysterectomy - Immunizations Hx Diphtheria, Pertussis, Tetanus Vaccination: No Physical Exam - Vital signs Vitals: Temp Pulse Resp BP Pulse Ox 98.2 F 87 20 144/80 H 100 06/28/20 14:54 06/28/20 14:54 06/28/20 14:54 06/28/20 14:54 06/28/20 14:54 Course - Vital Signs Vital signs: Temp Pulse Resp BP Pulse Ox 98.2 F 87 20 144/80 H 100 06/28/20 14:54 06/28/20 14:54 06/28/20 14:54 06/28/20 14:54 06/28/20 14:54 Doctor's Discharge - Discharge Referrals: SANG DILL PA-C [Primary Care Provider] - Follow up as needed
[2020-06-28 15:44] LABS: ABSOLUTE EOSINOPHILS # (AUTO) 0.1 10^3/uL (0.0-0.6); ABSOLUTE LYMPHOCYTES (AUTO) 2.3 10^3/uL (0.5-4.7); ABSOLUTE MONOCYTES (AUTO) 0.7 10^3/uL (0.1-1.4); ABSOLUTE NEUT (AUTO) 4.5 10^3/uL (1.7-8.2); BASOPHILS % (AUTO) 0.4 % (0-2); EOSINOPHILS % (AUTO) 1.9 % (0-6); HEMATOCRIT 44.9 % (36.0-47.0); HEMOGLOBIN 15.2 g/dL (12.0-15.5); LYMPHOCYTES % (AUTO) 29.9 % (13-45); MEAN CORPUSCULAR HEMOGLOBIN 29.7 pg (27.0-33.4); MEAN CORPUSCULAR HGB CONC 33.8 g/dL (32.0-36.0); MEAN CORPUSCULAR VOLUME 88 fl (80-97); MONOCYTES % (AUTO) 8.9 % (3-13); PLATELET COUNT 252 10^3/uL (150-450); RED BLOOD COUNT 5.11 10^6/uL (3.72-5.28); RED CELL DISTRIBUTION WIDTH 13.7 % (11.5-14.0); SEGMENTED NEUTROPHILS % (AUTO) 58.9 % (42-78); TOTAL CELLS COUNTED % (AUTO) 100 %; WHITE BLOOD COUNT 7.7 10^3/uL (4.0-10.5)
--- NOTE | 2020-06-28 15:48 | RADIOLOGY REPORT (SQ) ---
EXAM DESCRIPTION: CHEST 2 VIEWS IMAGES COMPLETED DATE/TIME: 06/28/2020 3:38 pm REASON FOR STUDY: chest pain COMPARISON: 06/25/2020 EXAM PARAMETERS: NUMBER OF VIEWS: two views TECHNIQUE: Digital Frontal and Lateral radiographic views of the chest acquired. RADIATION DOSE: NA LIMITATIONS: none FINDINGS: LUNGS AND PLEURA: No opacities, masses or pneumothorax. No pleural effusion. MEDIASTINUM AND HILAR STRUCTURES: No masses or contour abnormalities. HEART AND VASCULAR STRUCTURES: Heart normal size. No evidence for failure. BONES: No acute findings. HARDWARE: None in the chest. OTHER: No other significant finding. IMPRESSION: NO ACUTE RADIOGRAPHIC FINDING IN THE CHEST. TECHNICAL DOCUMENTATION: JOB ID: [id number] 2010 [email or web address]- All Rights Reserved Reading location - IP/workstation name: [email or web address]
[2020-06-28 16:02] LABS: ALBUMIN 4.2 g/dL (3.5-5.0); ALKALINE PHOSPHATASE 26 U/L (38-126); ANION GAP 10 (5-19); ASPARTATE AMINO TRANSFERASE 21 U/L (14-36); BILIRUBIN,DIRECT 0.4 mg/dL (0.0-0.4); BILIRUBIN,TOTAL 0.4 mg/dL (0.2-1.3); BLOOD UREA NITROGEN 14 mg/dL (7-20); CALCIUM 8.9 mg/dL (8.4-10.2); CARBON DIOXIDE 24 mmol/L (22-30); CHLORIDE 108 mmol/L (98-107); GLUCOSE 92 mg/dL (75-110); POTASSIUM 4.5 mmol/L (3.6-5.0); TOTAL PROTEIN 6.9 g/dL (6.3-8.2)
--- NOTE | 2020-06-28 16:22 | ER Document Report ---
ED General - General Chief Complaint: Leg Pain Stated Complaint: LEFT LEG PAIN,DIZZINESS, Time Seen by Provider: 06/28/20 15:03 Primary Care Provider: TED ORTEZ MD [ACTIVE STAFF] - Follow up as needed SHANKAR HILL MD [ACTIVE STAFF] - Follow up as needed SANG DILL PA-C [Primary Care Provider] - Follow up as needed TRAVEL OUTSIDE OF THE [place] IN LAST 30 DAYS: No - HPI Notes: 44-year-old female presents to the emergency room for complaints of left lower leg pain that is been bothering her for a few days. She went to her primary care provider today and they advised to come to the emergency room for an ultrasound of her lower extremity. Patient does take control, denies any clotting disorders, no recent surgeries, does not have any history of cancer or chemo treatments, no history of DVTs or PEs, no long rides across the country or recent plane flights. Patient also saying she is having a burning chest pain that feels like a "some burning on the inside" that has been constant for the last 4 days, she was seen in the emergency room here and had a cardiac evaluation which was negative for any acute findings. She did follow-up with her PCP today and which she then also had at the lower leg pain. Denies any fevers chills, shortness of breath, nausea vomiting or diarrhea. Patient states she was given a GI cocktail which did not relieve completely her pain when she was here on Tuesday. Patient states she did have an endoscopic procedure done 4 years ago, cannot remember who the provider was. MEDICATIONS: I agree with the patient medications as charted by the RN. ALLERGIES: I agree with the allergies as charted by the RN. PAST MEDICAL HISTORY/PAST SURGICAL HISTORY: Reviewed and agree as charted by RN. SOCIAL HISTORY: Reviewed and agree as charted by RN. FAMILY HISTORY: No significant familial comorbid conditions directly related to patient complaint EXAM: Reviewed vital signs as charted by RN. REVIEW OF SYSTEMS:reviewed vital signs by RN CONSTITUTIONAL : Denies fever, chills, or sweats. Denies recent illness. EENT: Denies eye, ear, throat, or mouth pain or symptoms. Denies nasal or sinus congestion or discharge. Denies throat, tongue, or mouth swelling or difficulty swallowing. CARDIOVASCULAR: reports chest pain. Denies palpitations or racing or irregular heart beat. Denies ankle edema. RESPIRATORY: Denies cough, cold, or chest congestion. Denies shortness of breath, difficulty breathing, or wheezing. GASTROINTESTINAL: Denies abdominal pain or distention. Denies nausea, vomiting, or diarrhea. Denies blood in vomitus, stools, or per rectum. Denies black, tarry stools. Denies constipation. GENITOURINARY: Denies difficulty urinating, painful urination, burning, frequency, blood in urine, or discharge. FEMALE GENITOURINARY: Denies vaginal bleeding, heavy or abnormal periods, irregular periods. Denies vaginal discharge or odor. MUSCULOSKELETAL: reports left calf pain. Denies back or neck pain or stiffness. Denies joint pain or swelling. SKIN: Denies rash, lesions or sores. HEMATOLOGIC : Denies easy bruising or bleeding. LYMPHATIC: Denies swollen, enlarged glands. NEUROLOGICAL: Denies confusion or altered mental status. Denies passing out or loss of consciousness. Denies dizziness or lightheadedness. Denies headache. Denies weakness or paralysis or loss of use of either side. Denies problems with gait or speech. Denies sensory loss, numbness, or tingling. Denies seizures. PSYCHIATRIC: Denies anxiety or stress. Denies depression, suicidal ideation, or homicidal ideation. ALL OTHER SYSTEMS REVIEWED AND NEGATIVE. PHYSICAL EXAMINATION: GENERAL: Well-appearing, well-nourished and in no acute distress. HEAD: Atraumatic, normocephalic. EYES: Pupils equal round and reactive to light, extraocular movements intact, conjunctiva are normal. ENT: Nares patent, oropharynx clear without exudates. Moist mucous membranes. NECK: Normal range of motion, supple without lymphadenopathy LUNGS: Breath sounds clear to auscultation bilaterally and equal. No wheezes rales or rhonchi. HEART: Regular rate and rhythm without murmurs. Reproducible chest pain on palpation ABDOMEN: Soft, nontender, nondistended abdomen. No guarding, no rebound. No masses appreciated. Female : deferred Musculoskeletal: Normal range of motion, no pitting or edema. No cyanosis. Tenderness to left calf on palpation. squeeze test negative bilaterally. dtr +2 BLE. full APROM. distal pulses + 2 BLE equally. Full motor and sensory function of bilateral lower extremities. No noted open wounds or abrasion. Normal gait. No vascular compromise. Peroneal nerve is intact with strong eversion and plantar flexion. Negative anterior drawer test. muscle strength 5/5 in BLE equally. Negative lissa's test NEUROLOGICAL: Cranial nerves grossly intact. Normal speech, normal gait. Normal sensory, motor exams PSYCH: Normal mood, normal affect. SKIN: Warm, Dry, normal turgor, no rashes or lesions noted. Dictation was performed using [employer] voice recognition software - Related Data Allergies/Adverse Reactions: clarithromycin [From Biaxin] Allergy (Verified 06/28/20 15:11) eletriptan HBr [From Relpax] Allergy (Verified 06/28/20 15:11) Sulfa (Sulfonamide Antibiotics) Allergy (Verified 06/28/20 15:11) topiramate [From Trokendi XR] Allergy (Verified 06/28/20 15:11) Past Medical History - General Information source: Patient - Social History Smoking Status: Never Smoker Family History: None, Reviewed & Not Pertinent - Past Medical History Cardiac Medical History: Denies: Hx Coronary Artery Disease, Hx Heart Attack, Hx Hypertension Pulmonary Medical History: Denies: Hx Asthma, Hx Bronchitis, Hx COPD, Hx Pneumonia Neurological Medical History: Reports: Hx Migraine - History of Chiari malformation. Denies: Hx Cerebrovascular Accident, Hx Seizures Renal/ Medical History: Denies: Hx Peritoneal Dialysis Musculoskeletal Medical History: Reports Hx Arthritis Past Surgical History: Reports: Hx Section, Hx Neurologic Surgery - Chiari malformation, Hx Nose Surgery - spetum repair, Hx Oral Surgery - [place] teeth, Hx Tonsillectomy - Adenoids. Denies: Hx Hysterectomy - Immunizations Hx Diphtheria, Pertussis, Tetanus Vaccination: No Physical Exam - Vital signs Vitals: Temp Pulse Resp BP Pulse Ox 98.2 F 87 20 144/80 H 100 06/28/20 14:54 06/28/20 14:54 06/28/20 14:54 06/28/20 14:54 06/28/20 14:54 Course - Re-evaluation Re-evalutation: 06/28/20 16:51 Afebrile vital stable no distress. Patient's venous Doppler of her left leg was negative for DVT. CBC negative for leukocytosis or anemia, CMP negative for hepatic or renal dysfunction, no electrolyte disturbances. Troponin less than 0.012, EKG negative for STEMI please see EKG note. Patient was advised to come to the emergency room by her PCP for left calf pain, Doppler was negative patient was concerned because she is on control, no recent periods of immobilization, clotting disorders, history of cancer, recent surgery or pregna ncy. Discussed with patient that it is advisable to follow-up with a ic design manager for her persistent chest pain as well as an truck crane operator helper for possible endoscopic exam for burning sensation that she feels substernally. Will start patient on omeprazole 20 mg daily and follow-up with also her primary care provider. I feel that her symptoms are musculoskeletal in nature, but since her chest pain is been persistent for the last 5 days. After performing a Medical Screening Examination, I estimate there is LOW risk for OPEN FRACTURE, COMPARTMENT SYNDROME, DEEP VENOUS THROMBOSIS, ACUTE TENDON RUPTURE, or NEUROVASCULAR INJURY thus I consider the discharge disposition reasonable. I have reevaluated this patient multiple times and no significant life threatening changes are noted. The patient and I have discussed the diagnosis and risks, and we agree with discharging home to closely follow-up with their primary doctor or the referral orthopedist with the understanding that symptoms and presentations can change. We also discussed returning to the Emergency Department immediately if new or worsening symptoms occur. We have discussed the symptoms which are most concerning (e.g., changing or worsening pain, numbness, weakness) that necessitate immediate return - Vital Signs Vital signs: Temp Pulse Resp BP Pulse Ox 98.2 F 84 18 126/80 H 99 06/28/20 14:54 06/28/20 16:57 06/28/20 16:57 06/28/20 16:57 06/28/20 16:57 - Laboratory Result Diagrams: 06/28/20 15:23 06/28/20 15:23 Laboratory results interpreted by me: 06/28/20 15:23 Chloride 108 H Alkaline Phosphatase 26 L - EKG Interpretation by Fl EKG shows normal: Sinus rhythm Rate: Normal Rhythm: NSR Additional EKG results interpreted by tn: 06/28/20 16:44 Heart rate 70, normal sinus rhythm, P 40, QRS 17, T 25, no changes from previous EKG. Discharge - Discharge Clinical Impression: Left leg pain, Chest pain Condition: Stable Disposition: HOME, SELF-CARE Instructions: Chest Wall Pain ([facility]), Chest Pain of Unclear Cause ([facility]), Myalagia (Muscle Pain) ([facility]) Additional Instructions: Your labs today were normal as well as her EKG. Ultrasound of your extremity was negative for DVT. Advised to please follow-up with a ic design manager for your unexplained chest pain as well as a truck crane operator helper for potential need for a endoscopic procedure to see if there is any gastric ulcers. Please start taking omeprazole 20 mg daily follow-up with your primary care provider within the next 24 to 48 hours for reevaluation. You were given a referral for truck crane operator helper as well as a ic design manager. Please return to the emergency room if you experience any worsening chest pain, shortness of breath, vomiting, abdominal pain etc. Return immediately for any new or worsening symptoms. Follow up with primary care provider, call tomorrow to make followup appointment. Prescriptions: Omeprazole 20 mg PO DAILY #20 capsule. Referrals: SANG DILL PA-C [Primary Care Provider] - Follow up as needed TED ORTEZ MD [ACTIVE STAFF] - Follow up as needed SHANKAR HILL MD [ACTIVE STAFF] - Follow up as needed
--- NOTE | 2020-06-28 16:40 | RADIOLOGY REPORT (SQ) ---
EXAM DESCRIPTION: VENOUS UNILATERAL LOWER IMAGES COMPLETED DATE/TIME: 06/28/2020 4:29 pm REASON FOR STUDY: left calf pain, sent by PCP COMPARISON: None. TECHNIQUE: Dynamic and static angulo scale and color images acquired of the left leg venous system. Se lected spectral images acquired with additional compression and augmentation maneuvers. The contralat eral common femoral vein and saphenofemoral junction were also imaged. Images stored on PACS. LIMITATIONS: None. FINDINGS: COMMON FEMORAL: Normal phasicity, compression and augmentation. No visualized echogenic ma terial on angulo scale. No defects on color images. FEMORAL: Normal compression and augmentation. No visualized echogenic material on angulo scale. No defe cts on color images. POPLITEAL: Normal compression, augmentation. No visualized echogenic material on angulo scale. No defec ts on color images. CALF VESSELS: Normal compression, augmentation. No visualized echogenic material on angulo scale. No de fects on color images. GSV and SSV: Normal compression, augmentation. No visualized echogenic material on angulo scale. No def ects on color images. ANY DEEP VENOUS INSUFFICIENCY: Not evaluated. ANY EVIDENCE OF POPLITEAL CYST: No. OTHER: No other significant finding. CONTRALATERAL COMMON FEMORAL VEIN AND SAPHENOFEMORAL JUNCTION: Normal phasicity, compression and augmentation. No visualized echogenic material on angulo scale. No de fects on color images. IMPRESSION: NO EVIDENCE DVT OR SVT IN THE LEFT LEG. TECHNICAL DOCUMENTATION: JOB ID: [id number] 2010 [employer]- All Rights Reserved Reading location - IP/workstation name: [email or web address]
[2020-06-28 16:58] VITALS: BP 126/80
--- NOTE | 2020-06-29 20:20 | EKG REPORT ---
SEVERITY:- NORMAL ECG - SINUS RHYTHM : Confirmed by: Ivonne Chandler MD 29-Jun-2020 20:19:22
== END 2020-06-28 17:01 | disposition home or self-care (01) ==
LOC: ER 14:50
DX: M79.662 Pain in left lower leg (principal); R07.9 Chest pain, unspecified; Z79.3 Long term (current) use of hormonal contraceptives; Z88.1 Allergy status to other antibiotic agents; Z88.2 Allergy status to sulfonamides; Z88.6 Allergy status to analgesic agent
CPT/HCPCS: 36415; 71046; 80053; 84484; 85025; 93005; 93010; 93971; 99285

== ENCOUNTER 2020-07-09 20:07 | Emergency (ER) | payer BC ==
--- NOTE | 2020-07-09 21:07 | ER Document Report ---
ED Medical Screen (RME) - General Chief Complaint: Cough Stated Complaint: COUGH,SHORTNESS OF BREATH Time Seen by Provider: 07/09/20 21:05 Primary Care Provider: SANG DILL PA-C [Primary Care Provider] - Follow up as needed Mode of Arrival: Ambulatory Information source: Patient Notes: 44-year-old female presented to ED for cough congestion was tested Tuesday and was negative. She states she does have a history of migraines Chiari malformation autoimmune S and sleep apnea. She states she is getting worse instead of better since Tuesday. She is alert oriented respirations regular nonlabored she does have a wet cough at this time. I have greeted and performed a rapid initial assessment of this patient. A comprehensive ED assessment and evaluation of the patient, analysis of test results and completion of medical decision making process will be conducted by an additional ED providers. TRAVEL OUTSIDE OF THE [place] IN LAST 30 DAYS: No - Related Data Allergies/Adverse Reactions: clarithromycin [From Biaxin] Allergy (Verified 06/28/20 15:11) eletriptan HBr [From Relpax] Allergy (Verified 06/28/20 15:11) Sulfa (Sulfonamide Antibiotics) Allergy (Verified 06/28/20 15:11) topiramate [From Trokendi XR] Allergy (Verified 06/28/20 15:11) Past Medical History - Past Medical History Cardiac Medical History: Denies: Hx Coronary Artery Disease, Hx Heart Attack, Hx Hypertension Pulmonary Medical History: Denies: Hx Asthma, Hx Bronchitis, Hx COPD, Hx Pneumonia Neurological Medical History: Reports: Hx Migraine - History of Chiari malformation. Denies: Hx Cerebrovascular Accident, Hx Seizures Renal/ Medical History: Denies: Hx Peritoneal Dialysis Musculoskeltal Medical History: Reports Hx Arthritis Past Surgical History: Reports: Hx Section, Hx Neurologic Surgery - Chiari malformation, Hx Nose Surgery - spetum repair, Hx Oral Surgery - [place] teeth, Hx Tonsillectomy - Adenoids. Denies: Hx Hysterectomy - Immunizations Hx Diphtheria, Pertussis, Tetanus Vaccination: No Doctor's Discharge - Discharge Referrals: SANG DILL PA-C [Primary Care Provider] - Follow up as needed
[2020-07-09] MEDS ORDERED: DIPHENHYDRAMINE HCL 50 MG/ML VIAL IV ONE (21:56)
[2020-07-09] MEDS ORDERED: NORMAL SALINE 500 ML IV ONE (21:56)
[2020-07-09] MEDS ORDERED: KETOROLAC TROMETHAMINE INJ/PF 30 MG/1 ML SDV IV ONE (21:56)
[2020-07-09] MEDS ORDERED: METOCLOPRAMIDE HCL ORAL SOLN 10 MG/10 ML UDCUP PO ONE (21:56)
[2020-07-09] MEDS ORDERED: DEXAMETHASONE SOD PHOS INJ 10 MG/1 ML VIAL IV ONE (21:57)
[2020-07-09] MEDS ORDERED: IPRATROPIUM/ALBUTEROL 0.5-2.5 MG/3 ML AMPUL NEB ONE (21:57)
[2020-07-09 21:58] LABS: ABSOLUTE BASOPHILS # (AUTO) 0.1 10^3/uL (0.0-0.2); ABSOLUTE EOSINOPHILS # (AUTO) 0.3 10^3/uL (0.0-0.6); ABSOLUTE LYMPHOCYTES (AUTO) 4.1 10^3/uL (0.5-4.7); ABSOLUTE MONOCYTES (AUTO) 1.1 10^3/uL (0.1-1.4); ABSOLUTE NEUT (AUTO) 5.2 10^3/uL (1.7-8.2); BASOPHILS % (AUTO) 0.7 % (0-2); EOSINOPHILS % (AUTO) 2.8 % (0-6); HEMOGLOBIN 14.6 g/dL (12.0-15.5); LYMPHOCYTES % (AUTO) 38.3 % (13-45); MEAN CORPUSCULAR HEMOGLOBIN 29.6 pg (27.0-33.4); MEAN CORPUSCULAR HGB CONC 33.9 g/dL (32.0-36.0); MEAN CORPUSCULAR VOLUME 87 fl (80-97); MONOCYTES % (AUTO) 9.8 % (3-13); PLATELET COUNT 307 10^3/uL (150-450); RED BLOOD COUNT 4.93 10^6/uL (3.72-5.28); RED CELL DISTRIBUTION WIDTH 13.7 % (11.5-14.0); SEGMENTED NEUTROPHILS % (AUTO) 48.4 % (42-78); TOTAL CELLS COUNTED % (AUTO) 100 %; WHITE BLOOD COUNT 10.7 10^3/uL (4.0-10.5)
--- NOTE | 2020-07-09 22:02 | ER Document Report ---
ED General - General Chief Complaint: Cough Stated Complaint: COUGH,SHORTNESS OF BREATH Time Seen by Provider: 07/09/20 21:05 Primary Care Provider: SANG DILL PA-C [Primary Care Provider] - Follow up as needed Mode of Arrival: Ambulatory Information source: Patient Notes: Patient is a 44-year-old female with history of chronic migraines here today with a typical migraine. Also having a bad harsh cough with wheezing and clear mucus production. States she does not have asthma or COPD but once to twice a year she does get a chest cold. She has no fevers or chills. Does not have any myalgias, anosmia, nausea or vomiting. Recent coronavirus screening was negative. Does not believe that she has coronavirus. TRAVEL OUTSIDE OF THE [place] IN LAST 30 DAYS: No - Related Data Allergies/Adverse Reactions: clarithromycin [From Biaxin] Allergy (Verified 07/09/20 21:44) eletriptan HBr [From Relpax] Allergy (Verified 07/09/20 21:44) Sulfa (Sulfonamide Antibiotics) Allergy (Verified 07/09/20 21:44) topiramate [From Trokendi XR] Allergy (Verified 07/09/20 21:44) Home Medications: Keppra Past Medical History - General Information source: Patient - Social History Smoking Status: Never Smoker Family History: None, Reviewed & Not Pertinent Patient has homicidal ideation: No - Past Medical History Cardiac Medical History: Denies: Hx Coronary Artery Disease, Hx Heart Attack, Hx Hypertension Pulmonary Medical History: Denies: Hx Asthma, Hx Bronchitis, Hx COPD, Hx Pneumonia Neurological Medical History: Reports: Hx Migraine - History of Chiari malformation. Denies: Hx Cerebrovascular Accident, Hx Seizures Renal/ Medical History: Denies: Hx Peritoneal Dialysis Musculoskeletal Medical History: Reports Hx Arthritis Past Surgical History: Reports: Hx Section, Hx Neurologic Surgery - Chiari malformation, Hx Nose Surgery - spetum repair, Hx Oral Surgery - [place] teeth, Hx Tonsillectomy - Adenoids. Denies: Hx Hysterectomy - Immunizations Hx Diphtheria, Pertussis, Tetanus Vaccination: No Review of Systems - Review of Systems Notes: Constitutional: No fevers. No chills. EENT: No eye redness. No eye pain. No ear pain. No sore throat. Cardiovascular: No chest pain. No palpitations. Respiratory: +cough. No shortness of breath. No respiratory distress. Positive posttussive dizziness. +wheeze Gastrointestinal: No abdominal pain. No nausea, vomiting, or diarrhea. Genitourinary: Atraumatic. No lesions. No pain. No discharge. Musculoskeletal: Atraumatic. No swelling. No deformities. Skin: No rash or lesions. Lymphatic: No swollen lymph nodes. Neurologic: +headache. No syncope. Psychiatric: No suicidal or homicidal ideation. Physical Exam - Notes Notes: General: Well-developed, well-nourished. In no acute distress. Non-toxic appearing. Cardiac: Well-perfused. Regular rate and rhythm. No murmurs, rubs, or gallops. Pulmonary: No respiratory distress. No cyanosis. Diminished breath sounds bilaterally Abdominal: Non-distended. Non-rigid. Bowels sounds are present in all four quadrants. No guarding or rebound. HEENT: Head is atraumatic. Conjunctivae not reddened. No tearing. PERRL. EOMI. Orbits atraumatic. No periorbital swelling or erythema. Oropharynx is without erythema, swelling, or exudates. Neck: Supple. No adenopathy. No meningismus. Dermatologic: Warm with good turgor. No rash. Atraumatic. Chest: Atraumatic. No chest wall tenderness to palpation. Musculoskeletal: Moves all extremities well. No range of motion deficits. no muscular or joint tenderness. No paraspinal muscle tenderness. no midline spinal tenderness or step-off. Genitourinary: Examination deferred Neurologic: No gross neurologic deficits. Psychiatric: Normal mood. Course - Re-evaluation Re-evalutation: 07/09/20 23:06 Patient feeling better after migraine cocktail. Also her labs for her upper respiratory infection have improved. Patient states that she has already been on a steroid pack and already has an albuterol inhaler. Her x-ray does not show any infiltrates. Given the length of time that she has been dealing with this I will go ahead and start her on a Z-Leonard and I do believe some Robitussin AC would probably help to expectorate some of the extra mucus and help her get some rest. - Laboratory Result Diagrams: 07/09/20 21:25 07/09/20 21:25 Laboratory results interpreted by me: 07/09/20 07/09/20 21:25 21:25 WBC 10.7 H Alkaline Phosphatase 25 L Discharge - Discharge Clinical Impression: Upper respiratory infection Qualifiers: URI type: unspecified URI Qualified Code(s): J06.9 - Acute upper respiratory infection, unspecified Condition: Good Disposition: HOME, SELF-CARE Instructions: Upper Respiratory Illness ([facility]) Prescriptions: Guaifenesin/Codeine Phos [Robitussin-AC Syrup 59 ml] 10 ml PO Q8HP PRN #120 ml PRN Reason: Cough Doxycycline Hyclate [Vibramycin 100 mg Tablet] 100 mg PO BID #20 tablet Referrals: SANG DILL PA-C [Primary Care Provider] - Follow up as needed
[2020-07-09 22:04] LABS: A TYPE INFLUENZA AG NEGATIVE (NEGATIVE); B INFLUENZA AG NEGATIVE (NEGATIVE)
[2020-07-09 22:15] LABS: ALBUMIN 3.9 g/dL (3.5-5.0); ALKALINE PHOSPHATASE 25 U/L (38-126); ANION GAP 8 (5-19); ASPARTATE AMINO TRANSFERASE 23 U/L (14-36); BILIRUBIN,DIRECT 0.3 mg/dL (0.0-0.4); BILIRUBIN,TOTAL 0.4 mg/dL (0.2-1.3); BLOOD UREA NITROGEN 16 mg/dL (7-20); CALCIUM 8.8 mg/dL (8.4-10.2); CARBON DIOXIDE 25 mmol/L (22-30); CHLORIDE 106 mmol/L (98-107); GLUCOSE 78 mg/dL (75-110); POTASSIUM 4.6 mmol/L (3.6-5.0); TOTAL PROTEIN 6.3 g/dL (6.3-8.2)
--- NOTE | 2020-07-09 22:48 | RADIOLOGY REPORT (SQ) ---
XR CHEST 1 VIEW CLINICAL STATEMENT: Congestion continue to be an ill fever chills COMPARISON: 06/28/2020 FINDINGS: Cardiomediastinal silhouette is within normal limits. There is no focal lung consolidation or pleural effusion. No evidence of pulmonary edema or pneumothorax. IMPRESSION: No acute cardiopulmonary disease.
[2020-07-09 23:11] VITALS: BP 119/79
== END 2020-07-09 23:18 | disposition home or self-care (01) ==
LOC: ER 20:07
DX: J06.9 Acute upper respiratory infection, unspecified (principal); R05 Cough; R06.02 Shortness of breath; R06.2 Wheezing
CPT/HCPCS: 99284; 94640; 96361; 96374; 96375; 36415; 85025; 80053; 87804; 71045; J1200; J1885; J7040; J1100

== ENCOUNTER → 2020-08-27 | Outpatient (CLI) | payer BC ==
--- NOTE | 2020-08-27 13:13 | RADIOLOGY REPORT (SQ) ---
EXAM DESCRIPTION: MRI RT UPPER JOINT WITHOUT IMAGES COMPLETED DATE/TIME: 08/27/2020 12:59 pm REASON FOR STUDY: (M25.531)PAIN IN RIGHT WRIST M25.531 PAIN IN RIGHT WRIST COMPARISON: None. TECHNIQUE: Right wrist images acquired and stored on PACS. Multiplanar images include fat sensitive sequences as T1, fluid sensitive sequences as FST2/STIR, cartilage sensitive sequences as FSPD, grad ient echo sequences. LIMITATIONS: Motion. FINDINGS: BONE MARROW: No alteration of signal to suggest marrow replacement or edema. No occult fra cture. No large osteophytes. CARPAL ALIGNMENT AND ARTICULATION: Mild subchondral cyst formation base of the capitate. Normal tadeo ruity of sigmoid notch at level of distal RUJ without positive or negative ulnar variance. Normal cap itolunate angle. No widening of scapholunate articulation. EFFUSION: None noted. No loose bodies. SCAPHOLUNATE LIGAMENT: Intact without tear. LUNATE-TRIQUETRAL LIGAMENT: Intact without tear. TFC COMPLEX: Radial and ulnar attachments normal. Meniscus intact. Extensor carpi ulnaris tendon norm al without tendinopathy. EXTRINSIC LIGAMENTS AND DISTAL RADIO-ULNAR JOINT: Dorsal and volar distal RUJ intact without subluxat ion of the distal ulna. 1-6 EXTENSOR COMPARTMENTS: Normal. CARPAL TUNNEL AND MEDIAN NERVE: Normal volume and morphology of the carpal tunnel proximally at the l evel of the radiocarpal joint and distally at the hook of the hamate. No thickening or signal alterat ion of the median nerve. OTHER: No other significant finding. IMPRESSION: No acute findings. TECHNICAL DOCUMENTATION: JOB ID: [id number] 2010 [email or web address]- All Rights Reserved Reading location - IP/workstation name: [email or web address]
== END ==
LOC: RAD 11:49
PROVIDERS: ATTEND Orthopaedic Surgery
DX: M25.531 Pain in right wrist (principal)